=== PATIENT | male | born 1990 | race African-American/Black ===

== ENCOUNTER 2016-07-08 15:17 | Emergency (ER) | payer SELFPAY ==
[2016-07-08 15:54] LABS: Urine Bilirubin Negative (Negative); Urine Glucose Negative (Negative); Urine Nitrite Negative (Negative)
[2016-07-08 16:29] LABS: Benzodiazepine Urine Screen None Detected (None Detect)
[2016-07-08] MEDS ORDERED: Haloperidol INJ IV/IM* 5 MG/ML AMP ONE (17:54)
[2016-07-08] MEDS ORDERED: LORazepam INJ* 2 MG/ML 1 ML VIAL ONE (17:54)
[2016-07-08] MEDS ORDERED: diPHENhydraMINE IV* 50 MG/ML 1 ml VIAL (BENADRYL) ONE (17:55)
[2016-07-08] MEDS ORDERED: diPHENhydraMINE IV* 50 MG/ML 1 ml VIAL (BENADRYL) IM ONE (18:02)
[2016-07-08] MEDS ORDERED: LORazepam INJ* 2 MG/ML 1 ML VIAL IM ONE (18:03)
[2016-07-08] MEDS ORDERED: Haloperidol INJ IV/IM* 5 MG/ML AMP IM ONE (18:04)
[2016-07-08 19:43] LABS: Hematocrit 42 % (42-52); Hemoglobin 13.3 g/dl (14.0-18.0); Mean Corpuscular HGB Conc 32 g/dl (31-36); Mean Corpuscular Hemoglobin 26 pg (27-31); Mean Corpuscular Volume 82 fL (80-94); Mean Platelet Volume 8 um3 (7.4-10.4); Red Blood Count 5.08 10^6/ul (4.0-5.4); Red Cell Distribution Width 16 % (10.5-15); White Blood Count 3.5 10^3/ul (3.5-10.8)
[2016-07-08 19:57] LABS: ALT 39 U/L (7-52); AST 40 U/L (13-39); Albumin 3.6 g/dL (3.2-5.2); Alkaline Phosphatase 75 U/L (34-104); Anion Gap 5 mmol/L (2-11); BUN/Creatinine Ratio 17.7 (8-20); Blood Urea Nitrogen 14 mg/dL (6-24); CO2 Carbon Dioxide 28 mmol/L (22-32); Calcium 8.5 mg/dL (8.6-10.3); Chloride 102 mmol/L (101-111); EGFR African American 151.3 (>60); EGFR Non-African American 117.7 (>60); Globulin 3.2 g/dL (2-4); Glucose 84 mg/dL (70-100); Potassium 3.8 mmol/L (3.5-5.0); Sodium 135 mmol/L (133-145); Total Protein 6.8 g/dL (6.4-8.9)
[2016-07-08 20:18] LABS: Acetaminophen < 15 mcg/mL; Alcohol < 10 mg/dL (<10); Salicylate < 2.50 mg/dL (<30)
[2016-07-08 20:28] LABS: TSH (Thyroid Stimulating Horm) 1.55 mcIU/mL (0.34-5.60)
[2016-07-09 08:19] VITALS: BP 92/54
--- NOTE | 2016-07-09 12:46 | ED ---
I, Oh,Soohrigoun, scribed for Andry Barajas MD on 07/08/16 at 1547 . Psychiatric Complaint - HPI Summary HPI Summary: This 25 y/o male presents to ED as 945. Pt is currently complaining of "trouble sleeping", but does not report any depression, visual/auditory hallucination, or any SI/HI. Pt was staying over at [facility] when pt was sent over for MHE. Pt states that he does not know why he was referred to ED for MHE. Pt also denies any known depression. Pt is nonsmoker, nondrinker, and odes not abuse any recreational drug. - History Of Current Complaint Chief Complaint: EDMentalHealth Time Seen by Provider: 07/08/16 15:40 Hx Obtained From: Patient Onset/Duration: Sudden Onset Aggravating Factor(s): Nothing Alleviating Factor(s): Medication Associated Signs And Symptoms: Positive: Sleep Disturbance Related History: Negative For: Prior Psychiatric Issues Has Suicidal: Denies: Thoughts Has Homicidal: Denies: Thoughts - Allergies/Home Medications Allergies/Adverse Reactions: Allergies Allergy/AdvReac Type Severity Reaction Status Date / Time No Known Allergies Allergy Verified 07/08/16 18:02 PMH/Surg Hx/FS Hx/Imm Hx - Family History Known Family History: Negative: Cardiac Disease - Social History Alcohol Use: None Hx Substance Use: No Substance Use Type: Reports: None Hx Tobacco Use: No Smoking Status (MU): Never Smoked Tobacco Review of Systems Negative: Fever Positive: Other - sleep disturbance. Negative: Depressed All Other Systems Reviewed And Are Negative: Yes Physical Exam - Summary Physical Exam Summary: VITAL SIGNS: Reviewed. GENERAL: Patient is a well developed and nourished and coaperative male who is lying comfortable in the stretcher. Patient is not in any acute respiratory distress. HEAD AND FACE: No signs of trauma. No ecchymosis, hematomas or skull depressions. No sinus tenderness. EYES: PERRLA, EOMI x 2, No injected conjunctiva, no nystagmus. EARS: Hearing grossly intact. Ear canals and tympanic membranes are within normal limits. MOUTH: Oropharynx within normal limits. NECK: Supple, trachea is midline, no adenopathy, no JVD, no carotid bruit, no c- spine tenderness, neck with full ROM. CHEST: Symmetric, no tenderness at palpation LUNGS: Clear to auscultation bilaterally. No wheezing or crackles. CVS: Regular rate and rhythm, S1 and S2 present, no murmurs or gallops appreciated. ABDOMEN: Soft, non-tender. No signs of distention. No rebound no guarding, and no masses palpated. Bowel sounds are normal. EXTREMITIES: FROM in all major joints, no edema, no cyanosis or clubbing. NEURO: Alert and oriented x 3. No acute neurological deficits. Speech is normal and follows commands. SKIN: Dry and warm PSYCH: Depressed, quiet, denies any suicidal thoughts or plan. No homicidal thoughts or plan. No signs of psychosis or pressure speech. No tangential speech. Triage Information Reviewed: Yes Vital Signs On Initial Exam: Initial Vitals Temp Pulse Resp BP Pulse Ox 100.0 F 106 20 131/70 100 07/08/16 15:59 07/08/16 15:59 07/08/16 15:59 07/08/16 15:59 07/08/16 15:59 Vital Signs Reviewed: Yes Diagnostics - Vital Signs Vital Signs Temp Pulse Resp BP Pulse Ox 07/08/16 15:59 100.0 F 106 20 131/70 100 - Laboratory Lab Results: Lab Results 07/08/16 Range/Units 15:35 Urine Color Yellow Urine Appearance Clear Urine pH 7.0 (5-9) Ur Specific [place] 1.032 H (1.010-1.030) Urine Protein Negative (Negative) Urine Ketones Trace H (Negative) Urine Blood Negative (Negative) Urine Nitrate Negative (Negative) Urine Bilirubin Negative (Negative) Urine Urobilinogen Negative (Negative) Ur Leukocyte Esterase Negative (Negative) Urine Glucose Negative (Negative) Urine Ascorbic Acid * H (Negative) Result Diagrams: 07/08/16 19:30 07/08/16 19:30 Lab Statement: Any lab studies that have been ordered have been reviewed, and results considered in the medical decision making process. Course/Dx - Course Assessment/Plan: This 25 y/o male presents to ED as 945. Pt is currently complaining of "trouble sleeping", but does not report any depression, visual/ auditory hallucination, or any SI/HI. Pt was staying over at [facility] when pt was sent over for MHE. Blood work wnl. Patient is medically cleared and awaiting for psychiatric evaluation. Patient will signed out to Dr. Henderson to f/u MHE recommendations - Differential Dx/Clinical Impression Differential Diagnosis/HQI/PQRI: Positive: Acute Psychosis, Anxiety Provider Diagnosis: Agitation, Insomnia - Physician Notifications Patient Is Medically Stable For: Psych Evaluation - 2204pm Discharge - Discharge Plan Condition: Stable Disposition: OTHER Discharge Disposition Comment: Signed out to Dr. Henderson at shift change. Pending MHE. The documentation as recorded by the Sherif fernando Soohyun accurately reflects the service I personally performed and the decisions made by Karl walls Walter, MD.
--- NOTE | 2016-07-09 15:23 | PN ---
ED Flex Patient Progress Note Subjective: This is a 25 year-old M who is pending mental health evaluation secondary to insomnia. He was brought in on 945 and has not allowed a mental health evaluation to occur as he turns over and falls asleep with every attempted interaction. Pt offers no complaints at this time. He states that he has eaten lunch and has been sleeping well. Objective: Vitals: Most recent vital signs documented below. General NAD, Alert and oriented x3. Heart: rrr at 70 bpm Lungs: CTA or with rales, rhonchi, wheezing Abdomen: soft nontender, normoactive bowel sounds Laboratory: Current laboratory results documented below. Assessment: Insomnia Plan: Pending psychiatric to perform MHE in order to decide disposition Vital Signs Temp Pulse Resp BP Pulse Ox 100.7 F 96 14 92/54 98 07/09/16 08:18 07/09/16 08:18 07/09/16 08:18 07/09/16 08:18 07/09/16 08:18 Lab Results - Entire Visit 07/08/16 07/08/16 07/08/16 19:30 19:30 15:35 WBC 3.5 RBC 5.08 Hgb 13.3 L Hct 42 MCV 82 MCH 26 L MCHC 32 RDW 16 H Plt Count 232 MPV 8 Neut % (Auto) 63.0 Lymph % (Auto) 20.7 L Cherry % (Auto) 13.4 H Eos % (Auto) 2.5 Baso % (Auto) 0.4 Absolute Neuts (auto) 2.2 Absolute Lymphs (auto) 0.7 L Absolute Monos (auto) 0.5 Absolute Eos (auto) 0.1 Absolute Basos (auto) 0 Absolute Nucleated RBC 0.01 Nucleated RBC % 0.2 Sodium 135 Potassium 3.8 Chloride 102 Carbon Dioxide 28 Anion Gap 5 BUN 14 Creatinine 0.79 Est GFR ( Amer) 151.3 Est GFR (Non-Af Amer) 117.7 BUN/Creatinine Ratio 17.7 Glucose 84 Calcium 8.5 L Total Bilirubin 0.40 AST 40 H ALT 39 Alkaline Phosphatase 75 Total Protein 6.8 Albumin 3.6 Globulin 3.2 Albumin/Globulin Ratio 1.1 TSH 1.55 Urine Color Urine Appearance Urine pH Ur Specific [place] Urine Protein Urine Ketones Urine Blood Urine Nitrate Urine Bilirubin Urine Urobilinogen Ur Leukocyte Esterase Urine Glucose Urine Ascorbic Acid Salicylates < 2.50 Urine Opiates Screen None detected Acetaminophen < 15 Ur Barbiturates Screen None detected Ur Phencyclidine Scrn None detected Ur Amphetamines Screen None detected U Benzodiazepines Scrn None detected Urine Cocaine Screen None detected U Cannabinoids Screen None detected Serum Alcohol < 10 07/08/16 15:35 WBC RBC Hgb Hct MCV MCH MCHC RDW Plt Count MPV Neut % (Auto) Lymph % (Auto) Cherry % (Auto) Eos % (Auto) Baso % (Auto) Absolute Neuts (auto) Absolute Lymphs (auto) Absolute Monos (auto) Absolute Eos (auto) Absolute Basos (auto) Absolute Nucleated RBC Nucleated RBC % Sodium Potassium Chloride Carbon Dioxide Anion Gap BUN Creatinine Est GFR ( Amer) Est GFR (Non-Af Amer) BUN/Creatinine Ratio Glucose Calcium Total Bilirubin AST ALT Alkaline Phosphatase Total Protein Albumin Globulin Albumin/Globulin Ratio TSH Urine Color Yellow Urine Appearance Clear Urine pH 7.0 Ur Specific [place] 1.032 H Urine Protein Negative Urine Ketones Trace H Urine Blood Negative Urine Nitrate Negative Urine Bilirubin Negative Urine Urobilinogen Negative Ur Leukocyte Esterase Negative Urine Glucose Negative Urine Ascorbic Acid * H Salicylates Urine Opiates Screen Acetaminophen Ur Barbiturates Screen Ur Phencyclidine Scrn Ur Amphetamines Screen U Benzodiazepines Scrn Urine Cocaine Screen U Cannabinoids Screen Serum Alcohol <Nova Velez - Last Filed: 07/09/16 15:27> Subjective: This is a 25 year-old M who is pending admission to [facility] / transfer to another psychiatric facility / discharge to home / or being observed secondary to . Pt offers no complaints at this time or is c/o . Objective: Vitals: Most recent vital signs documented below. General NAD, Alert and oriented x3. Heart: rrr at bpm Lungs: CTA or with rales, rhonchi, wheezing Laboratory: Current laboratory results documented below. Assessment: Plan: Pending psychiatric or medical consultation to observe / transfer / admit / discharge will follow up daily . Vital Signs Temp Pulse Resp BP Pulse Ox 100.7 F 96 14 92/54 98 07/09/16 08:18 07/09/16 08:18 07/09/16 08:18 07/09/16 08:18 07/09/16 08:18 Lab Results - Entire Visit 07/08/16 07/08/16 07/08/16 19:30 19:30 15:35 WBC 3.5 RBC 5.08 Hgb 13.3 L Hct 42 MCV 82 MCH 26 L MCHC 32 RDW 16 H Plt Count 232 MPV 8 Neut % (Auto) 63.0 Lymph % (Auto) 20.7 L [place] % (Auto) 13.4 H Eos % (Auto) 2.5 Baso % (Auto) 0.4 Absolute Neuts (auto) 2.2 Absolute Lymphs (auto) 0.7 L Absolute Monos (auto) 0.5 Absolute Eos (auto) 0.1 Absolute Basos (auto) 0 Absolute Nucleated RBC 0.01 Nucleated RBC % 0.2 Sodium 135 Potassium 3.8 Chloride 102 Carbon Dioxide 28 Anion Gap 5 BUN 14 Creatinine 0.79 Est GFR ( Amer) 151.3 Est GFR (Non-Af Amer) 117.7 BUN/Creatinine Ratio 17.7 Glucose 84 Calcium 8.5 L Total Bilirubin 0.40 AST 40 H ALT 39 Alkaline Phosphatase 75 Total Protein 6.8 Albumin 3.6 Globulin 3.2 Albumin/Globulin Ratio 1.1 TSH 1.55 Urine Color Urine Appearance Urine pH Ur Specific [place] Urine Protein Urine Ketones Urine Blood Urine Nitrate Urine Bilirubin Urine Urobilinogen Ur Leukocyte Esterase Urine Glucose Urine Ascorbic Acid Salicylates < 2.50 Urine Opiates Screen None detected Acetaminophen < 15 Ur Barbiturates Screen None detected Ur Phencyclidine Scrn None detected Ur Amphetamines Screen None detected U Benzodiazepines Scrn None detected Urine Cocaine Screen None detected U Cannabinoids Screen None detected Serum Alcohol < 10 07/08/16 15:35 WBC RBC Hgb Hct MCV MCH MCHC RDW Plt Count MPV Neut % (Auto) Lymph % (Auto) [place] % (Auto) Eos % (Auto) Baso % (Auto) Absolute Neuts (auto) Absolute Lymphs (auto) Absolute Monos (auto) Absolute Eos (auto) Absolute Basos (auto) Absolute Nucleated RBC Nucleated RBC % Sodium Potassium Chloride Carbon Dioxide Anion Gap BUN Creatinine Est GFR ( Amer) Est GFR (Non-Af Amer) BUN/Creatinine Ratio Glucose Calcium Total Bilirubin AST ALT Alkaline Phosphatase Total Protein Albumin Globulin Albumin/Globulin Ratio TSH Urine Color Yellow Urine Appearance Clear Urine pH 7.0 Ur Specific [place] 1.032 H Urine Protein Negative Urine Ketones Trace H Urine Blood Negative Urine Nitrate Negative Urine Bilirubin Negative Urine Urobilinogen Negative Ur Leukocyte Esterase Negative Urine Glucose Negative Urine Ascorbic Acid * H Salicylates Urine Opiates Screen Acetaminophen Ur Barbiturates Screen Ur Phencyclidine Scrn Ur Amphetamines Screen U Benzodiazepines Scrn Urine Cocaine Screen U Cannabinoids Screen Serum Alcohol <Andry Barajas - Last Filed: 07/09/16 16:19>
--- NOTE | 2016-08-03 20:05 | ED ---
Progress - Progress Note Progress Note: pt evaluated by crisis d/c home stable - Consult/PCP Time Called: 12:00 Course/Dx - Diagnoses Provider Diagnoses: Agitation, Insomnia
== END 2016-07-10 07:30 ==
LOC: ED 15:17
DX: G47.00 Insomnia, unspecified (principal); G47.9 Sleep disorder, unspecified; R45.1 Restlessness and agitation
CPT/HCPCS: 36415; 80053; 80307; 80320; 80329; 81003; 84443; 85025; 96374; 96375; 99285; G0480; J1200; J1630; J2060

== ENCOUNTER 2016-07-21 12:07 | Inpatient (IN) | payer SELFPAY ==
[2016-07-21] MEDS ORDERED: NS 0.9% 1000 ML* 1,000 ML IV ONE ×2 (14:30→17:34)
[2016-07-21] MEDS ORDERED: Morphine INJ* 4 MG/ML 1 ML CARPUJECT IV ONE (14:30)
[2016-07-21] MEDS ORDERED: Ondansetron INJ* 2 MG/ML VIAL IV ONE (14:30)
--- NOTE | 2016-07-21 14:32 | ED ---
Parris Eason Janilya, scribed for Layne Skinner MD on 07/21/16 at 1430 . Progress - Progress Note Progress Note: A 25 y/o [facility] w/ abd pain for about couple days. Severity rated 10/10. Pain is located in LLQ. And there is also pain to palpation. Today, the pain has gotten worse. Pain radiates to the groin area. Pt reports hematuria of brownish-red color. Pt has not experienced these conditions before. Pt is tachycardic. PMHx insomnia. Plan: CT pelvis/abd urinalysis labs IV fluids Course/Dx - Diagnoses Provider Diagnoses: Hematuria The documentation as recorded by the derekibeParris Janilya accurately reflects the service I personally performed and the decisions made by me, Layne Skinner MD.
[2016-07-21 15:07] LABS: Hematocrit 44 % (42-52); Hemoglobin 14.2 g/dl (14.0-18.0); Mean Corpuscular HGB Conc 32 g/dl (31-36); Mean Corpuscular Hemoglobin 26 pg (27-31); Mean Corpuscular Volume 82 fL (80-94); Mean Platelet Volume 8 um3 (7.4-10.4); Red Cell Distribution Width 17 % (10.5-15)
[2016-07-21 15:34] LABS: Albumin 4.1 g/dL (3.2-5.2); C Reactive Protein 5.7 mg/L (< 5.00); Calcium 9.4 mg/dL (8.6-10.3); EGFR African American 137.2 (>60); EGFR Non-African American 106.7 (>60); Globulin 3.3 g/dL (2-4); Potassium 3.9 mmol/L (3.5-5.0); Total Bilirubin 0.4 mg/dL (0.2-1.0); Total Protein 7.4 g/dL (6.4-8.9)
--- NOTE | 2016-07-21 15:41 | RAD ---
Indication: Left flank pain hematuria. CT of the abdomen and pelvis was performed without oral or IV contrast administration. Coronal and sagittal reconstructed images were obtained. Lung bases demonstrate no pleural fluid, nodules or masses. Heart is of normal size without evidence of pericardial Liver is normal in size. No focal lesions or intrahepatic ductal dilatation is noted. The spleen is normal in size. The pancreas demonstrates no mass effect or ductal dilatation. No adrenal lesions are noted. The kidneys demonstrate no hydronephrosis. No retroperitoneal lymphadenopathy is noted. No dilated bowel are noted. CT of the pelvis demonstrates no retroperitoneal or pelvic lymphadenopathy. Urinary bladder is partially collapsed. No evidence of obstructive uropathy is noted. IMPRESSION: No evidence of obstructive uropathy is noted.
[2016-07-21] MEDS ORDERED: HYDROmorphone INJ* 1 MG/ML CARPUJECT SYRINGE IV ONE (16:02)
--- NOTE | 2016-07-21 20:34 | ED ---
Parris Eason Janilya, scribed for Layne Skinner MD on 07/21/16 at 1828 . Abdominal Pain/Male - HPI Summary HPI Summary: A 25 y/o male [facility] [place] w/ a gradual onset of constant LLQ abd pain for couple weeks, but today the pain has gotten worse. Severity rated 10/10. There is pain to palpation and it radiates down to groin area. Pt reports hematuria of brownish-red color that occurred today. In addition, pt has "almost vomited" a couple hours ago. Pt denies other urinary problems. Pt has not experienced these conditions before. PMHx undescended testes, for which, pt had surgery. - History of Current Complaint Chief Complaint: EDAbdPain Stated Complaint: ABD PAIN Time Seen by Provider: 07/21/16 15:24 Hx Obtained From: Patient Onset/Duration: Gradual Onset, Lasting Weeks, Still Present Timing: Constant, Lasting Days Severity Initially: Moderate Severity Currently: Moderate Pain Intensity: 5 Pain Scale Used: 0-10 Numeric Location: Discrete At: LLQ Radiates: Yes Radiates to: Other - groin area Character: Dull Aggravating Factor(s): Nothing Alleviating Factor(s): Nothing Associated Signs And Symptoms: Positive: Urinary Symptoms, Vomiting - "almost vomited" - Risk Factors Testicular Torsion: Undescended Testes Cardiac Risk Factors: Hypertension - Allergies/Home Medications Allergies/Adverse Reactions: Allergies Allergy/AdvReac Type Severity Reaction Status Date / Time No Known Allergies Allergy Verified 07/08/16 18:02 PMH/Surg Hx/FS Hx/Imm Hx History: Reports: Other Problems/Disorders - undescended testes Psychiatric History: Denies: Hx Eating Disorder, Hx of Violent Episodes Against Others Infectious Disease History: No Infectious Disease History: Denies: Traveled Outside the [place] in Last 30 Days - Family History Known Family History: Negative: Cardiac Disease - Social History Occupation: Employed Full-time Lives: With Family Alcohol Use: None Hx Substance Use: No Substance Use Type: Reports: None Hx Tobacco Use: No Smoking Status (MU): Never Smoked Tobacco Review of Systems Positive: Abdominal Pain - LLQ, Vomiting - "almost vomited" Genitourinary: Negative - pt denies other urinary problems, see hpi, Other - abd pain radiates to groin area Positive: hematuria - brownish-red All Other Systems Reviewed And Are Negative: Yes Physical Exam Triage Information Reviewed: Yes Vital Signs On Initial Exam: Initial Vitals Temp Pulse Resp BP Pulse Ox 98.9 F 105 18 109/74 97 07/21/16 12:10 07/21/16 12:10 07/21/16 12:10 07/21/16 12:10 07/21/16 12:10 Vital Signs Reviewed: Yes Appearance: Positive: No Pain Distress. Negative: Well-Appearing - unkempt Skin: Positive: Warm, Skin Color Reflects Adequate Perfusion, Dry Eyes: Positive: EOMI, ROSALIA ENT: Positive: Pharynx normal, TMs normal Neck: Positive: Supple, Nontender Respiratory/Lung Sounds: Positive: Clear to Auscultation, Breath Sounds Present. Negative: Rales, Rhonchi - no wheezes Cardiovascular: Positive: RRR. Negative: Murmur, Rub - no gallops Abdomen Description: Positive: Other: - subpubic discomfort, left flank pain Bowel Sounds: Positive: Present Musculoskeletal: Positive: Strength/ROM Intact. Negative: Edema Left, Edema Right Neurological: Positive: Sensory/Motor Intact, Alert, Oriented to Person Place, Time, CN Intact II-III Psychiatric: Positive: Affect/Mood Appropriate Diagnostics - Vital Signs Vital Signs Temp Pulse Resp BP Pulse Ox 07/21/16 15:28 15 07/21/16 12:10 98.9 F 105 18 109/74 97 - Laboratory Lab Results: Lab Results 07/21/16 07/21/16 07/21/16 Range/Units 14:45 14:45 14:45 WBC 6.0 (3.5-10.8) 10^3/ul RBC 5.40 (4.0-5.4) 10^6/ul Hgb 14.2 (14.0-18.0) g/dl Hct 44 (42-52) % MCV 82 (80-94) fL MCH 26 L (27-31) pg MCHC 32 (31-36) g/dl RDW 17 H (10.5-15) % Plt Count 325 (150-450) 10^3/ul MPV 8 (7.4-10.4) um3 Neut % (Auto) 65.0 (38-83) % Lymph % (Auto) 21.6 L (25-47) % [place] % (Auto) 9.4 H (1-9) % Eos % (Auto) 3.0 (0-6) % Baso % (Auto) 1.0 (0-2) % Absolute Neuts (auto) 3.9 (1.5-7.7) 10^3/ul Absolute Lymphs (auto) 1.3 (1.0-4.8) 10^3/ul Absolute Monos (auto) 0.6 (0-0.8) 10^3/ul Absolute Eos (auto) 0.2 (0-0.6) 10^3/ul Absolute Basos (auto) 0.1 (0-0.2) 10^3/ul Absolute Nucleated RBC 0 10^3/ul Nucleated RBC % 0.1 Sodium 139 (133-145) mmol/L Potassium 3.9 (3.5-5.0) mmol/L Chloride 103 (101-111) mmol/L Carbon Dioxide 30 (22-32) mmol/L Anion Gap 6 (2-11) mmol/L BUN 12 (6-24) mg/dL Creatinine 0.86 (0.67-1.17) mg/dL Est GFR ( Amer) 137.2 (>60) Est GFR (Non-Af Amer) 106.7 (>60) BUN/Creatinine Ratio 14.0 (8-20) Glucose 75 (70-100) mg/dL Lactic Acid 1.0 (0.5-2.0) mmol/L Calcium 9.4 (8.6-10.3) mg/dL Total Bilirubin 0.40 (0.2-1.0) mg/dL AST 18 (13-39) U/L ALT 24 (7-52) U/L Alkaline Phosphatase 79 (34-104) U/L C-Reactive Protein 5.70 H (< 5.00) mg/L Total Protein 7.4 (6.4-8.9) g/dL Albumin 4.1 (3.2-5.2) g/dL Globulin 3.3 (2-4) g/dL Albumin/Globulin Ratio 1.2 (1-3) Lipase 44 (11.0-82.0) U/L Result Diagrams: 07/21/16 14:45 07/21/16 14:45 Lab Statement: Any lab studies that have been ordered have been reviewed, and results considered in the medical decision making process. - CT abd/pel CT Interpretation: No Acute Changes - IMPRESSION: No evidence of obstructive uropathy is noted. CT Interpretation Completed By: Radiologist - IMPRESSION: No evidence of obstructive uropathy is noted. Abdominal Pain Fem Course/Dx - Course Course Of Treatment: 183 pt says he can't urinate, has had 2 liters of fluids, agreed to a genital exam, but grimaced and moved this examiners hand away for exam. His affect and answers to exams has me wondering about what is going on. I have ordered an u/s of his testicle and bladder. At this point pt will be signed out to Dr. Bradley for followup of his ultrasounds. - Diagnoses Provider Diagnoses: Hematuria Discharge - Discharge Plan Condition: Stable Disposition: OTHER Discharge Disposition Comment: to be determined by Dr. Bradley The documentation as recorded by the Parris fernando Janilya accurately reflects the service I personally performed and the decisions made by me, Layne Skinner MD.
[2016-07-21] MEDS ORDERED: Ketorolac INJ* 30 MG/ML 1 ML VIAL IV PUSH ONE (20:48)
--- NOTE | 2016-07-21 21:42 | RAD ---
INDICATION: Inability to void COMPARISON: CT abdomen and pelvis same date TECHNIQUE: Longitudinal and transverse scans of the bladder were obtained. FINDINGS: Bladder: The prevoid volume is 154 mL. The patient stated that he could not void. There is no bladder wall thickening or evidence of intrinsic or extrinsic mass. There are ureteral jets. The prostate is normal in size measuring 3.3 x 2.3 x 3.7 cm. IMPRESSION: NORMAL BLADDER. THE PATIENT WAS NOT ABLE TO VOID SPONTANEOUSLY.
--- NOTE | 2016-07-21 21:46 | RAD ---
INDICATION: Left testicular pain COMPARISON: CT abdomen and pelvis same date TECHNIQUE: Duplex interrogation of the scrotum was performed. FINDINGS: Testicles: The testicles are Normal in size and echogenicity. There is no evidence of testicular mass. There is symmetric flow on Doppler interrogation. There is no evidence of torsion.. The right testis measures 2.8 x 1.9 x 2.3 cm and the left 3.4 x 1.6 and 2.0 cm. There is symmetric flow on Doppler interrogation. Epididymides: There is no evidence of an epididymal mass. The epididymides are normal in size. There is symmetric flow on Doppler interrogation. The right epididymal head measures 0.7 x 0.9 cm and the left 0.8 x 0.9 cm. Hydroceles: None. Varicoceles: Small varicoceles.. Other: Tiny right-sided paratesticular cysts. IMPRESSION: NO ACUTE ULTRASOUND FINDINGS. NO EVIDENCE OF TESTICULAR MASS OR TORSION.
[2016-07-22] MEDS ORDERED: risperiDONE TAB* 2 MG ONE (01:42)
--- NOTE | 2016-07-22 05:12 | ED ---
Jesus Manuel Eason Adam, scribed for Colten Bradley on 07/22/16 at 0458 . Progress - Progress Note Progress Note: Waiting for mental health evaluation. Course/Dx - Diagnoses Provider Diagnoses: Hematuria The documentation as recorded by the derekibJesus Manuel black Adam accurately reflects the service I personally performed and the decisions made by Kirk walls Emmanuel.
--- NOTE | 2016-07-22 13:19 | PN ---
ED Flex Patient Progress Note Subjective: 25 y.o. AA male referred from the [facility] due to bizarre behavior and inability to care for himself in the community. Today he is laying on his side in the flex room, eyes open but will not make eye contact nor respond to questions. Flex staff indicates that he is not eating meals nor grooming and is bizarre when he does speak. Objective: Awake but unresponsive AA male in scrubs Assessment: Unspecified Psychotic DO Plan: Pending psychiatric admission. There are currently no male beds on the Adult [facility] so we will initiate DCS transfer protocol. Vital Signs Temp Pulse Resp BP Pulse Ox 98.9 F 101 13 116/73 97 07/21/16 12:10 07/21/16 17:14 07/21/16 23:30 07/21/16 23:30 07/21/16 17:14 Lab Results - Entire Visit 07/21/16 07/21/16 07/21/16 14:45 14:45 14:45 WBC 6.0 RBC 5.40 Hgb 14.2 Hct 44 MCV 82 MCH 26 L MCHC 32 RDW 17 H Plt Count 325 MPV 8 Neut % (Auto) 65.0 Lymph % (Auto) 21.6 L [place] % (Auto) 9.4 H Eos % (Auto) 3.0 Baso % (Auto) 1.0 Absolute Neuts (auto) 3.9 Absolute Lymphs (auto) 1.3 Absolute Monos (auto) 0.6 Absolute Eos (auto) 0.2 Absolute Basos (auto) 0.1 Absolute Nucleated RBC 0 Nucleated RBC % 0.1 Sodium 139 Potassium 3.9 Chloride 103 Carbon Dioxide 30 Anion Gap 6 BUN 12 Creatinine 0.86 Est GFR ( Amer) 137.2 Est GFR (Non-Af Amer) 106.7 BUN/Creatinine Ratio 14.0 Glucose 75 Lactic Acid 1.0 Calcium 9.4 Total Bilirubin 0.40 AST 18 ALT 24 Alkaline Phosphatase 79 C-Reactive Protein 5.70 H Total Protein 7.4 Albumin 4.1 Globulin 3.3 Albumin/Globulin Ratio 1.2 Lipase 44
[2016-07-22] MEDS ORDERED: Al Hydrox/Mg Hydrox/Simet LIQ* 30 ML UDC PO PRN (16:26)
[2016-07-22] MEDS ORDERED: Acetaminophen TAB* 325 MG PO PRN (16:26)
[2016-07-22] MEDS ORDERED: chlorproMAZINE TAB* 100 MG PO PRN (16:27)
[2016-07-22] MEDS: risperiDONE TAB* 2 MG PO SCH (22:00)
[2016-07-23] MEDS: Vitamin THERAPEUTIC TAB PO SCH (13:06)
--- NOTE | 2016-07-23 17:13 | HP ---
DATE OF ADMISSION: 07/22/2016. JUSTIFICATION FOR ADMISSION: The patient is in need of 24 hour supervision and care secondary to extremely disorganized behavior and failure to meet his own needs and keep himself safe in the community. CHIEF COMPLAINT: "When you're a ayan, you get to be an attorney lawyer and a try on baster, and when you're a try on baster, you get to write your own try on baster's order." HISTORY OF PRESENT ILLNESS: The patient is a 25-year-old, single, homosexual, -St Helenian male with an unspecified history of psychosis, who arrived at our facility after calling the police and telling them that he needed to come to be evaluated for difficulty urinating. Upon arrival, he was extremely disorganized, was not eating, nor toileting appropriately. His only complaint at that time was pain from an undescended testicle and he was treated with pain relievers; however, he became unresponsive and was transferred to the ED flex unit. There he continued to be grossly disorganized, at one point urinating on the floor and he appeared unable to provide the treatment staff with much history. We were able to get in touch with a telecommunications sales representative of the [facility] who indicated that Jairo has been receiving services from that facility for approximately the past two months. They indicated that he was increasingly disorganized, often violating rules such as leaving at off hour times and locking himself in the bathroom while running the water. We were also to get collateral information from the [place] [employer] who indicates that they have had numerous interactions with the patient due to his disorganized behavior. At times he will trespass onto private property and abruptly lie down on the ground where they will find him sleeping. They indicate that he has never been violent and this is supported by the [facility]. Currently, as I enter his room, he is able to carry on a conversation with me, although it is bizarre. 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 He is nonsecretor non-sequitur at many times and I have a difficult time gathering a full and accurate history. It is notable that his mother has been identified, along with her phone number; however, I have left a voice message that has not been returned yet. On examination, the patient is disorganized. He appears to be internally distracted with a disjointed thought process and loosening of associations. He is interactive, but again limited in terms of the history. PAST PSYCHIATRIC HISTORY: We have confirmed that he was a patient of the Inpatient Psychiatric Unit at the [facility] in [place], [place] in March 2016. At some point, he appears to have disappeared and ended up initially in the [place], then migrating to [place] for at least the past [id number] to two months. While here, he has not received any type of psychiatric treatment and he is not currently on psychiatric medications. Although he denies any formal mental health history, at various times in our conversation he does admit to having been on Risperdal, Abilify, and Thorazine in the past; however, he is stating that his only psychiatric diagnosis was sleep insomnia disorder. He does let it slip later in the conversation that at least once he has been identified as bipolar. The patient steadfastly denies any history of violence towards others or any history of suicidal behavior. He denies any traumatic brain injury or any history of abuse from others. PAST MEDICAL HISTORY: Significant for what he is describing as an undescended testicle. He is also telling me that he has gender hormone deficiency and that technically he should be labeled a female because of this. MEDICATIONS: Currently he is not on any medications, although he is requesting Hydroxyzine for sleep. ALLERGIES: He has no known drug allergies. FAMILY HISTORY: The patient indicates that he was adopted. When asked about his family of origin, he denies any mental illness, telling me only that his mother was a famous director transition and that his father invented the accordion. SUBSTANCE ABUSE HISTORY: He denies abuse of alcohol, illicit drugs, or tobacco. SOCIAL HISTORY: The patient apparently was adopted by his single mother, who is a nurse, and was raised alone. He is stating that he does not have any siblings. 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 The patient identifies as homosexual, although he is not currently sexually active and he denies any history of sexually transmitted diseases. He denies any history. When asked about spirituality, he denies any particular confucianist, although he indicates that he has been receiving some type of support from a congregation in [place], [place]. LEGAL HISTORY: The patient is indicating that he had a lawsuit against an unknown entity that was successful because he himself was the try on baster and he decided in his own favor, and he is expecting a lawsuit settlement from this arrangement. When asked for further details, he states "I already emailed them to you." Nothing else of his history could be gathered at this time. REVIEW OF SYSTEMS: The patient is complaining of pain in his left flank, as well as testicular pain. My understanding is that this has been evaluated in the emergency room and any organic causes have been ruled out. Other than this , he is denying headache or double vision. He is denying sore throat, cough, chest pain, difficulty breathing. Denying abdominal pain, nausea, vomiting or diarrhea. He did complain of difficulty urinating, which he is stating is resolved. He denies difficulty ambulating, enlarged lymph nodes or rashes at this time. PHYSICAL EXAMINATION VITAL SIGNS: Blood pressure 135/80, pulse 86, respiratory rate 16, oxygen saturations 99 percent on room air, temperature 99.0 degrees Fahrenheit. HEENT: Head is normocephalic, atraumatic. NECK: Supple. CHEST: Clear to auscultation bilaterally. CARDIAC: Exam reveals normal heart sounds. ABDOMEN: Soft and nontender. SKIN: Warm and dry. EXTREMITIES: Reveal full range of motion with no sign of edema. NEUROLOGIC: He is grossly intact with no focal deficits. LABORATORY DATA: A CBC is within normal limits, as is a complete metabolic panel. MENTAL STATUS EXAM: The patient is a young, -St Helenian male, wearing eye glasses and blue patient scrubs. He is lying in bed, but makes reasonable eye contact. He is somewhat hyperverbal at this time with pressured speech. Mood would appear to be hypomanic to manic with an expansive affect. Thought process is disjointed with nonsequential thinking and loosening of associations. Thought content is paranoid and grandiose and delusional. He is denying auditory or visual hallucinations. He denies suicidal or homicidal ideations. Insight and judgment are markedly impaired given his lack of follow through with outpatient psychiatric treatment. Cognitively, he is awake and alert with what appears to be an average intellect. DIAGNOSES: AXIS I: Unspecified psychotic disorder. AXIS II: Deferred. AXIS III: None. AXIS IV: Severe, housing and primary support stressors. AXIS V: At this time is 25. IMPRESSION: The patient is a 25-year-old, single, homosexual, -[place] Helenian male with an unspecified history of psychotic illness, who was most recently admitted at the [facility] Unit in March 2016, who has arrived as a homeless person here in [place] and now presents as psychotic and unable to care for himself. The patient is refusing antipsychotic treatment at this time, telling me that his problems really involve insomnia and the only medication that he is willing to take is Hydroxyzine. I have left a message with his mother inviting her to contact me back with further collateral information. PLAN: The patient is admitted to the Adult Behavioral Health Unit where he is placed on q.30 minute checks for his own safety. He does not seem to be an acute risk to himself or others, other than the fact that it appears that in the community he was not eating or drinking or toileting appropriately, so we will certainly monitor these issues as we move forward. I have continued the medication that had been started in the emergency room, which is Risperidone 1 mg p.o. at bedtime. I think it would be reasonable at this point to try to get his documents from the [facility] so that we can find out more about past treatments and whether or not they have benefited the patient. While he is here , he is certainly encouraged to avail himself of all milieu activities, including group and individual psychotherapy. His family will be invited to participate in treatment, including a family meeting once we can establish contact with them. [id number]/[facility] #: [id number] STEPHANIE
[2016-07-23] MEDS: risperiDONE TAB* 2 MG PO SCH (21:07)
--- NOTE | 2016-07-24 09:03 | PN ---
Subjective - Subjective Service Type: [id number] Hosp care 15 min low complexity Subjective: The patient is found sleeping in his room. He continued to decline medication last night and disagrees that he has mental illness. He is stand-offish and argumentative. "You violated the treatment plan that I made. You didn't call Dr. 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 The patient' s mother, Harmony Ponce, was phoned yesterday by me, however, I have not received a return call as yet. Objective - Appearance Appearance: Well Developed/Nourished Dysmorphic Features: No Hygiene: Normal Grooming: Fairly Well Kept - Behavior Psychomotor Activities: Normal Exhibits Abnormal Movement: No - Attitude and Relatedness Attitude and Relatedness: Psychotically Related Eye Contact: Fair - Speech Quality: Pressured Latencies: Normal Quantity: Copious - Mood Patient's Decription of Mood: "Okay" - Affect Observed Affect: Fair Affect Consistent with: Dysphoria - Thought Process Patient's Thought Process: Loose Associations Thought Content: Yes Paranoid Ideation, No Passive Wish, No Suicidal Planning, No Homicidal Ideation - Sensorium Experiencing Hallucinations: Yes Type of Hallucinations: Visual: No, Auditory: Yes, Command: No - Level of Consciousness Level of Consciousness: Alert Orientation: Yes Intact, Yes Orientated to Time, Yes Orientated to Place, Yes Orientated to Person - Impulse Control Impulse Control: Poor - Insight and Judgement Insight and Judgement: Impaired - Group Participation Particating in Group Activities: No - Medication Management Medication Management Adherence: No Assessment - Assessment Merits Inpatient Hospitalization: For Immediate Safety, For Stabilization Inpatient DSM-IV Dx: Unspecified psychotic DO Clinical Impression: 25 y.o. single, homosexual, homeless AA male with a history of psychotic illness and past psychiatric hospitalization arrived at the hospital voluntarily , complaining of groin pain and difficulty urinating, but presents with disorganized thought process and inability to care for himself in the community. Plan - Plan Treatment Plan: Name: DONOVAN PONCE Birthdate: 1990 [id number] The patient is refusing treatment and remains psychotic, uncooperative and disorganized. We await collateral contact with his family. Will encourage adherence with risperidone. Patient's medical complaints were adequately addressed in the ER. Continued Medication Management: Start Medication Medications: Current Medications Acetaminophen (Tylenol Tab*) 650 mg PO Q4H PRN PRN Reason: for pain; or Temp >101 F Al Hydrox/Mg Hydrox/Simethicone (Maalox Plus*) 30 ml PO Q4H PRN PRN Reason: INDIGESTION Chlorpromazine HCl (Thorazine Tab*) 100 mg PO Q6H PRN PRN Reason: AGITATION/ANXIETY/INSOMNIA Multivitamins (Theragran Tab*) 1 tab PO DAILY [facility] Last Admin: 07/23/16 13:06 Dose: Not Given Risperidone (Risperdal*) 2 mg PO BEDTIME [facility] Last Admin: 07/23/16 21:07 Dose: Not Given - Discharge Plan Discharge Plan: Inpatient Hospitalization
[2016-07-24] MEDS: Vitamin THERAPEUTIC TAB PO SCH (09:44)
[2016-07-24] MEDS: risperiDONE TAB* 2 MG PO SCH (21:15)
[2016-07-25] MEDS: Vitamin THERAPEUTIC TAB PO SCH (10:37)
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
[2016-07-25] MEDS: risperiDONE TAB* 2 MG PO SCH (22:32)
[2016-07-26] MEDS: Vitamin THERAPEUTIC TAB PO SCH (08:47)
[2016-07-26] MEDS: risperiDONE TAB* 2 MG PO SCH (22:23)
--- NOTE | 2016-07-27 11:34 | PN ---
Subjective - Subjective Service Type: 86530 Hosp care 15 min low complexity Subjective: Jairo repeatedly informed me "I am getting duralax so I will be able to poop." He denies having any mental illness and said he is admitted due to "sleep insomnia," and he would not consider medication recommended for other conditions , which he sad "have all been ruled out." Objective - Appearance Appearance: Well Developed/Nourished Hygiene: Normal Grooming: Disheveled - Behavior Psychomotor Activities: Normal - Attitude and Relatedness Attitude and Relatedness: Psychotically Related Eye Contact: Good - Speech Quality: Unpressured Latencies: Normal Quantity: Appropriate - Mood Patient's Decription of Mood: "Fine" - Affect Observed Affect: Tense Affect Consistent with: Euthymia - Thought Process Patient's Thought Process: Over Inclusive Thought Content: No Passive Wish, No Suicidal Planning, No Homicidal Ideation, No Paranoid Ideation - Sensorium Experiencing Hallucinations: No, Sensorium is Clear - Level of Consciousness Level of Consciousness: Alert - Impulse Control Impulse Control: Intact - Insight and Judgement Insight and Judgement: Poor Assessment - Assessment Merits Inpatient Hospitalization: For Immediate Safety Inpatient DSM-IV Dx: Unspecified psychotic DO Clinical Impression: 25 y.o. homeless male with a history of Schizoaffective disorder diagnosis and prior psychiatric hospitalization. He was admitted because he was evaluated as impaired and unable to care for self, after initially presenting with a somatic complaint. He his safe on checks, seclusive. He is not floridly psychotic but functions at the psychotic levels in terms of negative symptoms and impairment in insight. He is unable to meet own needs outside this setting. He refuses indicated medicines and this may mean T.O.O. process is needed. Plan - Plan Treatment Plan: Name: JAIRO MORILLO Birthdate: 1990 [id number] Medications: Current Medications Acetaminophen (Tylenol Tab*) 650 mg PO Q4H PRN PRN Reason: for pain; or Temp >101 F Al Hydrox/Mg Hydrox/Simethicone (Maalox Plus*) 30 ml PO Q4H PRN PRN Reason: INDIGESTION Last Admin: 07/27/16 09:45 Dose: 30 ml Chlorpromazine HCl (Thorazine Tab*) 100 mg PO Q6H PRN PRN Reason: AGITATION/ANXIETY/INSOMNIA Multivitamins (Theragran Tab*) 1 tab PO DAILY [facility] Last Admin: 07/26/16 08:47 Dose: Not Given Risperidone (Risperdal*) 2 mg PO BEDTIME [facility] Last Admin: 07/26/16 22:23 Dose: Not Given
[2016-07-27] MEDS: Vitamin THERAPEUTIC TAB PO SCH (13:20)
[2016-07-27] MEDS: risperiDONE TAB* 2 MG PO SCH (20:50)
[2016-07-28] MEDS: Vitamin THERAPEUTIC TAB PO SCH (10:09)
--- NOTE | 2016-07-28 13:43 | PN ---
Subjective - Subjective Service Type: 13628 Hosp care 15 min low complexity Subjective: The patient is dismissive and argumentative today. He continues to be unable to provide us with any collateral contact that could substantiate a discharge plan or vouch for his safety. He is refusing meds and is not attending groups or otherwise participating in treatment. He continues to insist that he is going to return to his studies at [employer], despite his mother's claim that he has never attended classes or even been there before. Objective - Appearance Appearance: Thin Framed Dysmorphic Features: No Hygiene: Normal Grooming: Fairly Well Kept - Behavior Psychomotor Activities: Normal Exhibits Abnormal Movement: No - Attitude and Relatedness Attitude and Relatedness: Dismissive Eye Contact: Poor - Speech Quality: Pressured Latencies: Short Quantity: Copious - Mood Patient's Decription of Mood: "Fine" - Affect Observed Affect: Tense Affect Consistent with: Euthymia - Thought Process Patient's Thought Process: Loose Associations Thought Content: Yes Paranoid Ideation, No Passive Wish, No Suicidal Planning, No Homicidal Ideation - Sensorium Experiencing Hallucinations: Yes Type of Hallucinations: Visual: No, Auditory: Yes, Command: No - Level of Consciousness Level of Consciousness: Alert Orientation: Yes Intact, Yes Orientated to Time, Yes Orientated to Place, Yes Orientated to Person - Impulse Control Impulse Control: Poor - Insight and Judgement Insight and Judgement: Impaired - Group Participation Particating in Group Activities: No - Medication Management Medication Management Adherence: No Assessment - Assessment Merits Inpatient Hospitalization: For Immediate Safety, For Stabilization Inpatient DSM-IV Dx: Unspecified psychotic DO Clinical Impression: 25 y.o. single, homosexual, homeless AA male with a history of psychotic illness and past psychiatric hospitalization arrived at the hospital voluntarily , complaining of groin pain and difficulty urinating, but presents with disorganized thought process and inability to care for himself in the community. Plan - Plan Treatment Plan: Name: DONOVAN MORILLO Birthdate: 1990 [id number] The patient is refusing treatment and remains psychotic, uncooperative and disorganized. Will encourage adherence with risperidone. Will pursue T.O.O. as patient is disorganized and incapable of participating in safe discharge planning. Continued Medication Management: Start Medication Medications: Current Medications Acetaminophen (Tylenol Tab*) 650 mg PO Q4H PRN PRN Reason: for pain; or Temp >101 F Al Hydrox/Mg Hydrox/Simethicone (Maalox Plus*) 30 ml PO Q4H PRN PRN Reason: INDIGESTION Last Admin: 07/27/16 09:45 Dose: 30 ml Chlorpromazine HCl (Thorazine Tab*) 100 mg PO Q6H PRN PRN Reason: AGITATION/ANXIETY/INSOMNIA Multivitamins (Theragran Tab*) 1 tab PO DAILY [facility] Last Admin: 07/28/16 10:09 Dose: Not Given Risperidone (Risperdal*) 2 mg PO BEDTIME [facility] Last Admin: 07/27/16 20:50 Dose: Not Given - Discharge Plan Discharge Plan: Inpatient Hospitalization
[2016-07-28] MEDS: risperiDONE TAB* 2 MG PO SCH (20:46)
[2016-07-29] MEDS: Vitamin THERAPEUTIC TAB PO SCH (11:48)
--- NOTE | 2016-07-29 15:30 | PN ---
Subjective - Subjective Service Type: 30502 Hosp care 15 min low complexity Subjective: The patient continues to refuse psychiatric medications and tells me today that he arranged his discharge plan with a nurse on the evening shift named Danay. "Yeah, we worked out all the details, so you can get an email from her. I've made my recommendation to the team and I think my responsibility is really done here." He shows no insight into his situation at all and more concrete details about a possible discharge scenario are not forthcoming. Objective - Appearance Appearance: Thin Framed Dysmorphic Features: No Hygiene: Normal Grooming: Fairly Well Kept - Behavior Psychomotor Activities: Normal Exhibits Abnormal Movement: No - Attitude and Relatedness Attitude and Relatedness: Psychotically Related Eye Contact: Fair - Speech Quality: Pressured Latencies: Short Quantity: Copious - Mood Patient's Decription of Mood: "Fine" - Affect Observed Affect: Expansive Affect Consistent with: Dysphoria - Thought Process Patient's Thought Process: Disorganized Thought Content: Yes Paranoid Ideation, No Passive Wish - Sensorium Experiencing Hallucinations: Yes Type of Hallucinations: Visual: No, Auditory: Yes, Command: No - Level of Consciousness Level of Consciousness: Alert Orientation: Yes Intact, Yes Orientated to Time, Yes Orientated to Place, Yes Orientated to Person - Impulse Control Impulse Control: Poor - Insight and Judgement Insight and Judgement: Impaired - Group Participation Particating in Group Activities: No - Medication Management Medication Management Adherence: No Assessment - Assessment Merits Inpatient Hospitalization: For Immediate Safety, For Stabilization Inpatient DSM-IV Dx: Unspecified psychotic DO Clinical Impression: 25 y.o. single, homosexual, homeless AA male with a history of psychotic illness and past psychiatric hospitalization arrived at the hospital voluntarily , complaining of groin pain and difficulty urinating, but presents with disorganized thought process and inability to care for himself in the community. Plan - Plan Treatment Plan: Name: DONOVAN MORILLO Birthdate: 1990 [id number] The patient is refusing treatment and remains psychotic, uncooperative and disorganized. Will encourage adherence with risperidone. Will pursue T.O.O. as patient is disorganized and incapable of participating in safe discharge planning. Continued Medication Management: Start Medication Medications: Current Medications Acetaminophen (Tylenol Tab*) 650 mg PO Q4H PRN PRN Reason: for pain; or Temp >101 F Al Hydrox/Mg Hydrox/Simethicone (Maalox Plus*) 30 ml PO Q4H PRN PRN Reason: INDIGESTION Last Admin: 07/27/16 09:45 Dose: 30 ml Chlorpromazine HCl (Thorazine Tab*) 100 mg PO Q6H PRN PRN Reason: AGITATION/ANXIETY/INSOMNIA Multivitamins (Theragran Tab*) 1 tab PO DAILY [facility] Last Admin: 07/29/16 11:48 Dose: Not Given Risperidone (Risperdal*) 2 mg PO BEDTIME [facility] Last Admin: 07/28/16 20:46 Dose: Not Given - Discharge Plan Discharge Plan: Inpatient Hospitalization
[2016-07-29] MEDS: risperiDONE TAB* 2 MG PO SCH (21:37)
[2016-07-30] MEDS: Vitamin THERAPEUTIC TAB PO SCH (09:23)
--- NOTE | 2016-07-30 15:53 | PN ---
Subjective - Subjective Service Type: [id number] Hosp care 15 min low complexity Subjective: The patient continues to insist on being discharged back to the [facility]. "Yeah, you can just use the money from my manager financial and get me a bus ticket back." This is despite his mother's assertion that he is neither a student at [employer] [facility], nor has he ever, to her knowledge, been to the [facility]. Jairo is informed of the risk of influenza exposure on our unit due to an infected peer who was admitted and discharged recently. He accepts the offer of Tamiflu prophylaxis. Objective - Appearance Appearance: Thin Framed Dysmorphic Features: No Hygiene: Normal Grooming: Disheveled - Behavior Psychomotor Activities: Normal Exhibits Abnormal Movement: No - Attitude and Relatedness Attitude and Relatedness: Psychotically Related Eye Contact: Poor - Speech Quality: Pressured Latencies: Short Quantity: Copious - Mood Patient's Decription of Mood: "Great" - Affect Observed Affect: Fair Affect Consistent with: Euthymia - Thought Process Patient's Thought Process: Loose Associations Thought Content: Yes Paranoid Ideation, No Passive Wish, No Suicidal Planning, No Homicidal Ideation - Sensorium Experiencing Hallucinations: Yes Type of Hallucinations: Visual: No, Auditory: Yes, Command: No - Level of Consciousness Level of Consciousness: Alert Orientation: Yes Intact, Yes Orientated to Time, Yes Orientated to Place, Yes Orientated to Person - Impulse Control Impulse Control: Poor - Insight and Judgement Insight and Judgement: Impaired - Group Participation Particating in Group Activities: No - Medication Management Medication Management Adherence: No Assessment - Assessment Merits Inpatient Hospitalization: For Immediate Safety, For Stabilization Inpatient DSM-IV Dx: Unspecified psychotic DO Clinical Impression: 25 y.o. single, homosexual, homeless AA male with a history of psychotic illness and past psychiatric hospitalization arrived at the hospital voluntarily , complaining of groin pain and difficulty urinating, but presents with disorganized thought process and inability to care for himself in the community. Plan - Plan Treatment Plan: Name: JAIRO MORILLO Birthdate: 1990 [id number] The patient is refusing treatment and remains psychotic, uncooperative and disorganized. Will encourage adherence with risperidone. Will pursue T.O.O. as patient is disorganized and incapable of participating in safe discharge planning. Start Tamiflu 30mg PO qday. Continued Medication Management: Start Medication Medications: Current Medications Acetaminophen (Tylenol Tab*) 650 mg PO Q4H PRN PRN Reason: for pain; or Temp >101 F Al Hydrox/Mg Hydrox/Simethicone (Maalox Plus*) 30 ml PO Q4H PRN PRN Reason: INDIGESTION Last Admin: 07/27/16 09:45 Dose: 30 ml Chlorpromazine HCl (Thorazine Tab*) 100 mg PO Q6H PRN PRN Reason: AGITATION/ANXIETY/INSOMNIA Multivitamins (Theragran Tab*) 1 tab PO DAILY [facility] Last Admin: 07/30/16 09:23 Dose: Not Given Oseltamivir Phosphate (Tamiflu Cap*) 30 mg PO DAILY [facility] Risperidone (Risperdal*) 2 mg PO BEDTIME [facility] Last Admin: 07/29/16 21:37 Dose: Not Given - Discharge Plan Discharge Plan: Inpatient Hospitalization
[2016-07-30] MEDS: Oseltamivir CAP* 75 MG PO SCH (17:02)
[2016-07-30] MEDS: risperiDONE TAB* 2 MG PO SCH (20:23)
[2016-07-31] MEDS: Vitamin THERAPEUTIC TAB PO SCH (09:17)
[2016-07-31] MEDS: Oseltamivir CAP* 75 MG PO SCH (09:17)
--- NOTE | 2016-07-31 12:11 | PN ---
Subjective - Subjective Service Type: 54917 Hosp care 15 min low complexity Subjective: The patient is still oddly related with diffuse cognitions and inability to account for how he might take care of himself if discharged. "Oh, I don't know. Go here, go there, you know." He is receiving Tamiflu for prophylaxis, following exposure to influenza on the unit from an infected peer, but he is refusing antipsychotic therapy of any kind. He is seclusive to himself and does not come out of his room typically unless for meals. Objective - Appearance Appearance: Well Developed/Nourished, Thin Framed Dysmorphic Features: No Hygiene: Normal Grooming: Well Kept - Behavior Psychomotor Activities: Abnormal-Decreased Exhibits Abnormal Movement: No - Attitude and Relatedness Attitude and Relatedness: Withdrawn Eye Contact: Poor - Speech Quality: Unpressured Latencies: Normal Quantity: Terse - Mood Patient's Decription of Mood: "Okay" - Affect Observed Affect: Unvariable Affect Consistent with: Euthymia - Thought Process Patient's Thought Process: Disorganized Thought Content: Yes Paranoid Ideation, No Passive Wish, No Suicidal Planning, No Homicidal Ideation - Sensorium Experiencing Hallucinations: Yes Type of Hallucinations: Visual: No, Auditory: Yes, Command: No - Level of Consciousness Level of Consciousness: Alert Orientation: Yes Intact, Yes Orientated to Time, Yes Orientated to Place, Yes Orientated to Person - Impulse Control Impulse Control: Poor - Insight and Judgement Insight and Judgement: Impaired - Group Participation Particating in Group Activities: No - Medication Management Medication Management Adherence: No Assessment - Assessment Merits Inpatient Hospitalization: For Immediate Safety, For Stabilization Inpatient DSM-IV Dx: Unspecified psychotic DO Clinical Impression: 25 y.o. single, homosexual, homeless AA male with a history of psychotic illness and past psychiatric hospitalization arrived at the hospital voluntarily , complaining of groin pain and difficulty urinating, but presents with disorganized thought process and inability to care for himself in the community. Plan - Plan Treatment Plan: Name: DONOVAN MORILLO Birthdate: 1990 [id number] The patient is refusing treatment and remains psychotic, uncooperative and disorganized. Will encourage adherence with risperidone. Will pursue T.O.O. as patient is disorganized and incapable of participating in safe discharge planning. Continued Medication Management: Start Medication Medications: Current Medications Acetaminophen (Tylenol Tab*) 650 mg PO Q4H PRN PRN Reason: for pain; or Temp >101 F Al Hydrox/Mg Hydrox/Simethicone (Maalox Plus*) 30 ml PO Q4H PRN PRN Reason: INDIGESTION Last Admin: 07/27/16 09:45 Dose: 30 ml Chlorpromazine HCl (Thorazine Tab*) 100 mg PO Q6H PRN PRN Reason: AGITATION/ANXIETY/INSOMNIA Multivitamins (Theragran Tab*) 1 tab PO DAILY [facility] Last Admin: 07/31/16 09:17 Dose: 1 tab Oseltamivir Phosphate (Tamiflu Cap*) 75 mg PO DAILY [facility] Last Admin: 07/31/16 09:17 Dose: 75 mg Risperidone (Risperdal*) 2 mg PO BEDTIME [facility] Last Admin: 07/30/16 20:23 Dose: Not Given - Discharge Plan Discharge Plan: Inpatient Hospitalization
[2016-07-31] MEDS: risperiDONE TAB* 2 MG PO SCH (21:47)
[2016-08-01] MEDS: Oseltamivir CAP* 75 MG PO SCH (09:53)
[2016-08-01] MEDS: Vitamin THERAPEUTIC TAB PO SCH (09:53)
--- NOTE | 2016-08-01 14:02 | PN ---
Subjective - Subjective Service Type: 36909 Hosp care 15 min low complexity Subjective: The patient has no complaints today. When asked about discharge plans he continues to respond vaguely. "Oh, I don't know just call the [facility]." He cannot give any specific contact options there and replies only "Just look at the website. Someone's email is bound to be on there." He is isolating to his room and will not attend groups nor interact with peers. His room is dishevelled and cluttered. Objective - Appearance Appearance: Thin Framed Dysmorphic Features: No Hygiene: Dirty Grooming: Disheveled - Behavior Psychomotor Activities: Normal Exhibits Abnormal Movement: No - Attitude and Relatedness Attitude and Relatedness: Psychotically Related Eye Contact: Poor - Speech Quality: Unpressured Latencies: Normal Quantity: Terse - Mood Patient's Decription of Mood: "Fine" - Affect Observed Affect: Unvariable Affect Consistent with: Euthymia - Thought Process Patient's Thought Process: Loose Associations Thought Content: Yes Paranoid Ideation, No Passive Wish, No Suicidal Planning, No Homicidal Ideation - Sensorium Experiencing Hallucinations: Yes Type of Hallucinations: Visual: No, Auditory: Yes, Command: No - Level of Consciousness Level of Consciousness: Alert Orientation: Yes Intact, Yes Orientated to Time, Yes Orientated to Place, Yes Orientated to Person - Impulse Control Impulse Control: Poor - Insight and Judgement Insight and Judgement: Impaired - Group Participation Particating in Group Activities: No - Medication Management Medication Management Adherence: No Assessment - Assessment Merits Inpatient Hospitalization: For Immediate Safety, For Stabilization Inpatient DSM-IV Dx: Unspecified psychotic DO Clinical Impression: 25 y.o. single, homosexual, homeless AA male with a history of psychotic illness and past psychiatric hospitalization arrived at the hospital voluntarily , complaining of groin pain and difficulty urinating, but presents with disorganized thought process and inability to care for himself in the community. Plan - Plan Treatment Plan: Name: DONOVAN MORILLO Birthdate: 1990 [id number] The patient is refusing treatment and remains psychotic, uncooperative and disorganized. Will encourage adherence with risperidone. Will pursue T.O.O. as patient is disorganized and incapable of participating in safe discharge planning. Continued Medication Management: Start Medication Medications: Current Medications Acetaminophen (Tylenol Tab*) 650 mg PO Q4H PRN PRN Reason: for pain; or Temp >101 F Al Hydrox/Mg Hydrox/Simethicone (Maalox Plus*) 30 ml PO Q4H PRN PRN Reason: INDIGESTION Last Admin: 07/27/16 09:45 Dose: 30 ml Chlorpromazine HCl (Thorazine Tab*) 100 mg PO Q6H PRN PRN Reason: AGITATION/ANXIETY/INSOMNIA Multivitamins (Theragran Tab*) 1 tab PO DAILY [facility] Last Admin: 08/01/16 09:53 Dose: 1 tab Oseltamivir Phosphate (Tamiflu Cap*) 75 mg PO DAILY [facility] Last Admin: 08/01/16 09:53 Dose: 75 mg Risperidone (Risperdal*) 2 mg PO BEDTIME [facility] Last Admin: 07/31/16 21:47 Dose: Not Given - Discharge Plan Discharge Plan: Inpatient Hospitalization
[2016-08-01] MEDS: risperiDONE TAB* 2 MG PO SCH (20:19)
[2016-08-02] MEDS: Oseltamivir CAP* 75 MG PO SCH (09:33)
[2016-08-02] MEDS: Vitamin THERAPEUTIC TAB PO SCH (09:33)
[2016-08-02] MEDS: risperiDONE TAB* 2 MG PO SCH (20:26)
[2016-08-03] MEDS: Oseltamivir CAP* 75 MG PO SCH (09:58)
[2016-08-03] MEDS: Vitamin THERAPEUTIC TAB PO SCH (09:58)
[2016-08-03] MEDS: risperiDONE TAB* 2 MG PO SCH (20:19)
[2016-08-04] MEDS: Oseltamivir CAP* 75 MG PO SCH ×2 (10:08→10:30)
[2016-08-04] MEDS: Vitamin THERAPEUTIC TAB PO SCH ×2 (10:08→10:35)
--- NOTE | 2016-08-04 16:09 | PN ---
Subjective - Subjective Service Type: 85093 Hosp care 15 min low complexity Subjective: The patient still displays gross thought disorganization. He hands me two scraps of paper which have various phone numbers, email addresses and people's names that I do not recognize. "You had asked me to help with the discharge planning. All the information you need is right there." Later the papers are given to the SW, Dia Sterling who indicates that they include a website for [employer], emails for [facility] billing and patient care departments and a generic address for the [employer] [facility]. He is calm and cooperative but not leaving his room other than to eat. He continues to refuse psychiatric medications. Objective - Appearance Appearance: Thin Framed Dysmorphic Features: No Hygiene: Normal Grooming: Disheveled - Behavior Psychomotor Activities: Normal Exhibits Abnormal Movement: No - Attitude and Relatedness Attitude and Relatedness: Psychotically Related Eye Contact: Poor - Speech Quality: Unpressured Latencies: Normal Quantity: Terse - Mood Patient's Decription of Mood: "Fine" - Affect Observed Affect: Unvariable Affect Consistent with: Euthymia - Thought Process Patient's Thought Process: Disorganized, Impoverished Thought Content: Yes Paranoid Ideation, No Passive Wish, No Suicidal Planning, No Homicidal Ideation - Sensorium Experiencing Hallucinations: Yes Type of Hallucinations: Visual: No, Auditory: Yes, Command: No - Level of Consciousness Level of Consciousness: Alert Orientation: Yes Intact, Yes Orientated to Time, Yes Orientated to Place, Yes Orientated to Person - Impulse Control Impulse Control: Poor - Insight and Judgement Insight and Judgement: Impaired - Group Participation Particating in Group Activities: No - Medication Management Medication Management Adherence: No Assessment - Assessment Merits Inpatient Hospitalization: For Immediate Safety, For Stabilization, For Discharge Planning Inpatient DSM-IV Dx: Unspecified psychotic DO Clinical Impression: 25 y.o. single, homosexual, homeless AA male with a history of psychotic illness and past psychiatric hospitalization arrived at the hospital voluntarily , complaining of groin pain and difficulty urinating, but presents with disorganized thought process and inability to care for himself in the community. Plan - Plan Treatment Plan: Name: DONOVAN MORILLO Birthdate: 1990 [id number] The patient is refusing treatment and remains psychotic, uncooperative and disorganized. Will encourage adherence with risperidone. Will pursue T.O.O. as patient is disorganized and incapable of participating in safe discharge planning. Continued Medication Management: Start Medication Medications: Current Medications Acetaminophen (Tylenol Tab*) 650 mg PO Q4H PRN PRN Reason: for pain; or Temp >101 F Al Hydrox/Mg Hydrox/Simethicone (Maalox Plus*) 30 ml PO Q4H PRN PRN Reason: INDIGESTION Last Admin: 07/27/16 09:45 Dose: 30 ml Chlorpromazine HCl (Thorazine Tab*) 100 mg PO Q6H PRN PRN Reason: AGITATION/ANXIETY/INSOMNIA Multivitamins (Theragran Tab*) 1 tab PO DAILY [facility] Last Admin: 08/04/16 10:35 Dose: Not Given Oseltamivir Phosphate (Tamiflu Cap*) 75 mg PO DAILY [facility] Last Admin: 08/04/16 10:30 Dose: Not Given Risperidone (Risperdal*) 2 mg PO BEDTIME [facility] Last Admin: 08/03/16 20:19 Dose: Not Given - Discharge Plan Discharge Plan: Inpatient Hospitalization
[2016-08-04] MEDS: risperiDONE TAB* 2 MG PO SCH (21:35)
[2016-08-05] MEDS: Vitamin THERAPEUTIC TAB PO SCH (10:58)
[2016-08-05] MEDS: Oseltamivir CAP* 75 MG PO SCH (10:58)
--- NOTE | 2016-08-05 11:51 | PN ---
Subjective - Subjective Service Type: [id number] Hosp care 15 min low complexity Subjective: The patient is again engaged on the subject of discharge planning and where he could safely go after discharge. He is notified that the contact sources he provided me with yesterday were incoherent, such as the [employer], [employer] and several unrelated administrative departments here at this hospital. "OK, well, I guess I got one or two digits wrong in the addresses I gave you. I'll look into it." He misses most meals and does not often leave his room, which appears messy and cluttered. Objective - Appearance Appearance: Thin Framed Dysmorphic Features: No Hygiene: Normal Grooming: Disheveled - Behavior Psychomotor Activities: Abnormal-Decreased Exhibits Abnormal Movement: No - Attitude and Relatedness Attitude and Relatedness: Psychotically Related Eye Contact: Poor - Speech Quality: Unpressured Latencies: Normal Quantity: Terse - Mood Patient's Decription of Mood: "Okay" - Affect Observed Affect: Unvariable Affect Consistent with: Euthymia - Thought Process Patient's Thought Process: Disorganized, Impoverished Thought Content: Yes Paranoid Ideation, No Passive Wish, No Suicidal Planning, No Homicidal Ideation - Sensorium Experiencing Hallucinations: Yes Type of Hallucinations: Visual: No, Auditory: Yes, Command: No - Level of Consciousness Level of Consciousness: Alert Orientation: Yes Intact, Yes Orientated to Time, Yes Orientated to Place, Yes Orientated to Person - Impulse Control Impulse Control: Poor - Insight and Judgement Insight and Judgement: Impaired - Group Participation Particating in Group Activities: No - Medication Management Medication Management Adherence: No Assessment - Assessment Merits Inpatient Hospitalization: For Immediate Safety, For Stabilization Inpatient DSM-IV Dx: Unspecified psychotic DO Clinical Impression: 25 y.o. single, homosexual, homeless AA male with a history of psychotic illness and past psychiatric hospitalization arrived at the hospital voluntarily , complaining of groin pain and difficulty urinating, but presents with disorganized thought process and inability to care for himself in the community. Plan - Plan Treatment Plan: Name: DONOVAN MORILLO Birthdate: 1990 [id number] The patient is refusing treatment and remains psychotic, uncooperative and disorganized. Will encourage adherence with risperidone. Will pursue T.O.O. as patient is disorganized and incapable of participating in safe discharge planning. Continued Medication Management: Start Medication Medications: Current Medications Acetaminophen (Tylenol Tab*) 650 mg PO Q4H PRN PRN Reason: for pain; or Temp >101 F Al Hydrox/Mg Hydrox/Simethicone (Maalox Plus*) 30 ml PO Q4H PRN PRN Reason: INDIGESTION Last Admin: 07/27/16 09:45 Dose: 30 ml Chlorpromazine HCl (Thorazine Tab*) 100 mg PO Q6H PRN PRN Reason: AGITATION/ANXIETY/INSOMNIA Multivitamins (Theragran Tab*) 1 tab PO DAILY [facility] Last Admin: 08/05/16 10:58 Dose: Not Given Oseltamivir Phosphate (Tamiflu Cap*) 75 mg PO DAILY [facility] Last Admin: 08/05/16 10:58 Dose: Not Given Risperidone (Risperdal*) 2 mg PO BEDTIME [facility] Last Admin: 08/04/16 21:35 Dose: Not Given - Discharge Plan Discharge Plan: Inpatient Hospitalization
[2016-08-05] MEDS ORDERED: diPHENhydraMINE PO* 50 MG ONE (17:35)
[2016-08-05] MEDS ORDERED: diPHENhydraMINE PO* 50 MG PO ONE (17:40)
[2016-08-05] MEDS ORDERED: chlorproMAZINE INJ* 25 MG/ML 2 ML (50 MG) IM ONE (18:00)
[2016-08-05] MEDS ORDERED: chlorproMAZINE INJ* 25 MG/ML 2 ML (50 MG) ONE (18:07)
[2016-08-05] MEDS: risperiDONE TAB* 2 MG PO SCH (20:19)
[2016-08-06] MEDS: Oseltamivir CAP* 75 MG PO SCH (14:53)
[2016-08-06] MEDS: Vitamin THERAPEUTIC TAB PO SCH (14:53)
--- NOTE | 2016-08-06 15:08 | PN ---
Subjective - Subjective Service Type: [id number] Hosp care 15 min low complexity Subjective: The patient was apparently agitated and attempting to elope last night. 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 He again refused oral meds and received a 100mg dose of IM chlorpromazine instead. Currently he is complaining of "allergies" from the shot but cannot describe what type of reaction he's experiencing. He hands me another scrap of paper, peeled out of a magazine, with an address for [facility], presumably in support of being discharged there. I point out that the address is for the lobby of a [employer] there, to which he replies "Oh, OK. I guess we'll have to have the social services analyst sort it out." Objective - Appearance Appearance: Thin Framed Dysmorphic Features: No Hygiene: Normal Grooming: Fairly Well Kept - Behavior Psychomotor Activities: Normal Exhibits Abnormal Movement: No - Attitude and Relatedness Attitude and Relatedness: Psychotically Related Eye Contact: Poor - Speech Quality: Unpressured Latencies: Normal Quantity: Terse - Mood Patient's Decription of Mood: "Fine" - Affect Observed Affect: Unvariable Affect Consistent with: Euthymia - Thought Process Patient's Thought Process: Disorganized Thought Content: Yes Paranoid Ideation, No Passive Wish, No Suicidal Planning, No Homicidal Ideation - Sensorium Experiencing Hallucinations: Yes Type of Hallucinations: Visual: No, Auditory: Yes, Command: No - Level of Consciousness Level of Consciousness: Alert Orientation: Yes Intact, Yes Orientated to Time, Yes Orientated to Place, Yes Orientated to Person - Impulse Control Impulse Control: Poor - Insight and Judgement Insight and Judgement: Impaired - Group Participation Particating in Group Activities: No - Medication Management Medication Management Adherence: No Assessment - Assessment Merits Inpatient Hospitalization: For Immediate Safety, For Stabilization Inpatient DSM-IV Dx: Unspecified psychotic DO Clinical Impression: 25 y.o. single, homosexual, homeless AA male with a history of psychotic illness and past psychiatric hospitalization arrived at the hospital voluntarily , complaining of groin pain and difficulty urinating, but presents with disorganized thought process and inability to care for himself in the community. Plan - Plan Treatment Plan: Name: DONOVAN MORILLO Birthdate: 1990 [id number] The patient is refusing treatment and remains psychotic, uncooperative and disorganized. Will encourage adherence with risperidone. Will pursue T.O.O. as patient is disorganized and incapable of participating in safe discharge planning. Court date set for Thursday, 08/08 at 09:30. Continued Medication Management: Start Medication Medications: Current Medications Acetaminophen (Tylenol Tab*) 650 mg PO Q4H PRN PRN Reason: for pain; or Temp >101 F Al Hydrox/Mg Hydrox/Simethicone (Maalox Plus*) 30 ml PO Q4H PRN PRN Reason: INDIGESTION Last Admin: 07/27/16 09:45 Dose: 30 ml Chlorpromazine HCl (Thorazine Tab*) 100 mg PO Q6H PRN PRN Reason: AGITATION/ANXIETY/INSOMNIA Multivitamins (Theragran Tab*) 1 tab PO DAILY [facility] Last Admin: 08/06/16 14:53 Dose: Not Given Oseltamivir Phosphate (Tamiflu Cap*) 75 mg PO DAILY [facility] Last Admin: 08/06/16 14:53 Dose: Not Given Risperidone (Risperdal*) 2 mg PO BEDTIME [facility] Last Admin: 08/05/16 20:19 Dose: 2 mg - Discharge Plan Discharge Plan: Inpatient Hospitalization
[2016-08-06] MEDS: risperiDONE TAB* 2 MG PO SCH (20:11)
[2016-08-07] MEDS: Oseltamivir CAP* 75 MG PO SCH (09:53)
[2016-08-07] MEDS: Vitamin THERAPEUTIC TAB PO SCH (09:54)
--- NOTE | 2016-08-07 11:17 | PN ---
Subjective - Subjective Service Type: [id number] Hosp care 15 min low complexity Subjective: The patient remains non-adherent with treatment and spends almost the whole day in bed in his room under the covers. He is delusional and not able to state where or with whom he would reside following discharge. Objective - Appearance Appearance: Thin Framed Dysmorphic Features: No Hygiene: Normal Grooming: Disheveled - Behavior Psychomotor Activities: Abnormal-Decreased Exhibits Abnormal Movement: No - Attitude and Relatedness Attitude and Relatedness: Withdrawn Eye Contact: Poor - Speech Quality: Unpressured Latencies: Normal Quantity: Terse - Mood Patient's Decription of Mood: "Okay" - Affect Observed Affect: Unvariable Affect Consistent with: Euthymia - Thought Process Patient's Thought Process: Impoverished Thought Content: Yes Paranoid Ideation, No Passive Wish, No Suicidal Planning, No Homicidal Ideation - Sensorium Experiencing Hallucinations: Yes Type of Hallucinations: Visual: No, Auditory: Yes, Command: No - Level of Consciousness Level of Consciousness: Alert Orientation: Yes Intact, Yes Orientated to Time, Yes Orientated to Place, Yes Orientated to Person - Impulse Control Impulse Control: Poor - Insight and Judgement Insight and Judgement: Impaired - Group Participation Particating in Group Activities: No - Medication Management Medication Management Adherence: No Assessment - Assessment Merits Inpatient Hospitalization: For Immediate Safety, For Stabilization Inpatient DSM-IV Dx: Unspecified psychotic DO Clinical Impression: 25 y.o. single, homosexual, homeless AA male with a history of psychotic illness and past psychiatric hospitalization arrived at the hospital voluntarily , complaining of groin pain and difficulty urinating, but presents with disorganized thought process and inability to care for himself in the community. Plan - Plan Treatment Plan: Name: DONOVAN MORILLO Birthdate: 1990 [id number] The patient is refusing treatment and remains psychotic, uncooperative and disorganized. Will encourage adherence with risperidone. Will pursue T.O.O. as patient is disorganized and incapable of participating in safe discharge planning. Court date set for 08/08 at 09:30. Continued Medication Management: Start Medication Medications: Current Medications Acetaminophen (Tylenol Tab*) 650 mg PO Q4H PRN PRN Reason: for pain; or Temp >101 F Al Hydrox/Mg Hydrox/Simethicone (Maalox Plus*) 30 ml PO Q4H PRN PRN Reason: INDIGESTION Last Admin: 07/27/16 09:45 Dose: 30 ml Chlorpromazine HCl (Thorazine Tab*) 100 mg PO Q6H PRN PRN Reason: AGITATION/ANXIETY/INSOMNIA Multivitamins (Theragran Tab*) 1 tab PO DAILY [facility] Last Admin: 08/07/16 09:54 Dose: Not Given Oseltamivir Phosphate (Tamiflu Cap*) 75 mg PO DAILY [facility] Last Admin: 08/07/16 09:53 Dose: Not Given Risperidone (Risperdal*) 2 mg PO BEDTIME [facility] Last Admin: 08/06/16 20:11 Dose: Not Given - Discharge Plan Discharge Plan: Inpatient Hospitalization
[2016-08-07] MEDS: risperiDONE TAB* 2 MG PO SCH (20:45)
[2016-08-08] MEDS ORDERED: Ibuprofen TAB* 600 MG PO PRN (08:52)
--- NOTE | 2016-08-08 08:56 | PN ---
Subjective - Subjective Service Type: 62572 Hosp care 15 min low complexity Subjective: Patient curled up on his bed and refusing to come with the Collection Systems Technician to his court proceeding this morning. "No, I don't think so. 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 He continues to refuse antipsychotic medications and shows no insight into his condition. Objective - Appearance Appearance: Thin Framed Dysmorphic Features: No Hygiene: Normal Grooming: Fairly Well Kept - Behavior Psychomotor Activities: Normal Exhibits Abnormal Movement: No - Attitude and Relatedness Attitude and Relatedness: Psychotically Related Eye Contact: Poor - Speech Quality: Unpressured Latencies: Normal Quantity: Terse - Mood Patient's Decription of Mood: "Okay" - Affect Observed Affect: Unvariable Affect Consistent with: Euthymia - Thought Process Patient's Thought Process: Impoverished Thought Content: Yes Paranoid Ideation, No Passive Wish, No Suicidal Planning, No Homicidal Ideation - Sensorium Experiencing Hallucinations: Yes Type of Hallucinations: Visual: No, Auditory: Yes, Command: No - Level of Consciousness Level of Consciousness: Alert Orientation: Yes Intact, Yes Orientated to Time, Yes Orientated to Place, Yes Orientated to Person - Impulse Control Impulse Control: Poor - Insight and Judgement Insight and Judgement: Impaired - Group Participation Particating in Group Activities: No - Medication Management Medication Management Adherence: No Assessment - Assessment Inpatient DSM-IV Dx: Unspecified psychotic DO Clinical Impression: 25 y.o. single, homosexual, homeless AA male with a history of psychotic illness and past psychiatric hospitalization arrived at the hospital voluntarily , complaining of groin pain and difficulty urinating, but presents with disorganized thought process and inability to care for himself in the community. Plan - Plan Treatment Plan: Name: DONOVAN MORILLO Birthdate: 1990 [id number] The patient is refusing treatment and remains psychotic, uncooperative and disorganized. Will encourage adherence with risperidone. Will pursue T.O.O. as patient is disorganized and incapable of participating in safe discharge planning. Court date set for today, Thursday, 08/08 at 09:30. Continued Medication Management: Start Medication Medications: Current Medications Acetaminophen (Tylenol Tab*) 650 mg PO Q4H PRN PRN Reason: for pain; or Temp >101 F Al Hydrox/Mg Hydrox/Simethicone (Maalox Plus*) 30 ml PO Q4H PRN PRN Reason: INDIGESTION Last Admin: 07/27/16 09:45 Dose: 30 ml Chlorpromazine HCl (Thorazine Tab*) 100 mg PO Q6H PRN PRN Reason: AGITATION/ANXIETY/INSOMNIA Multivitamins (Theragran Tab*) 1 tab PO DAILY [facility] Last Admin: 08/07/16 09:54 Dose: Not Given Oseltamivir Phosphate (Tamiflu Cap*) 75 mg PO DAILY [facility] Last Admin: 08/07/16 09:53 Dose: Not Given Risperidone (Risperdal*) 2 mg PO BEDTIME [facility] Last Admin: 08/07/16 20:45 Dose: Not Given - Discharge Plan Discharge Plan: Inpatient Hospitalization
[2016-08-08] MEDS: Oseltamivir CAP* 75 MG PO SCH (10:31)
[2016-08-08] MEDS: Vitamin THERAPEUTIC TAB PO SCH (10:31)
[2016-08-08] MEDS: risperiDONE TAB* 2 MG PO SCH (20:00)
[2016-08-09] MEDS: Vitamin THERAPEUTIC TAB PO SCH (09:49)
[2016-08-09] MEDS: Oseltamivir CAP* 75 MG PO SCH (09:49)
[2016-08-09] MEDS ORDERED: diPHENhydraMINE PO* 50 MG PO PRN (19:02)
[2016-08-09] MEDS: risperiDONE TAB* 2 MG PO SCH (21:13)
[2016-08-10] MEDS: Oseltamivir CAP* 75 MG PO SCH (10:07)
[2016-08-10] MEDS: Vitamin THERAPEUTIC TAB PO SCH (10:07)
[2016-08-10] MEDS: risperiDONE TAB* 2 MG PO SCH (20:42)
[2016-08-11] MEDS: Oseltamivir CAP* 75 MG PO SCH (09:08)
[2016-08-11] MEDS: Vitamin THERAPEUTIC TAB PO SCH (09:08)
--- NOTE | 2016-08-11 13:18 | PN ---
Subjective - Subjective Service Type: [id number] Hosp care 15 min low complexity Subjective: The patient appears to be tolerating his initial loading dose of Invega Sustenna , which he received without incident on Thursday, 08/08. He continues to be dismissive about treatment and continues to state that his intention is to return to the [facility] after discharge, a place his mother insists he's never been to, much less went to school at. Objective - Appearance Appearance: Thin Framed Dysmorphic Features: No Hygiene: Normal Grooming: Well Kept - Behavior Psychomotor Activities: Normal Exhibits Abnormal Movement: No - Attitude and Relatedness Attitude and Relatedness: Psychotically Related Eye Contact: Fair - Speech Quality: Unpressured Latencies: Normal Quantity: Terse - Mood Patient's Decription of Mood: "Fine" - Affect Observed Affect: Unvariable Affect Consistent with: Euthymia - Thought Process Patient's Thought Process: Impoverished Thought Content: Yes Paranoid Ideation, No Passive Wish, No Suicidal Planning, No Homicidal Ideation - Sensorium Experiencing Hallucinations: Yes Type of Hallucinations: Visual: No, Auditory: Yes, Command: No - Level of Consciousness Level of Consciousness: Alert Orientation: Yes Intact, Yes Orientated to Time, Yes Orientated to Place, Yes Orientated to Person - Impulse Control Impulse Control: Poor - Insight and Judgement Insight and Judgement: Impaired - Group Participation Particating in Group Activities: No - Medication Management Medication Management Adherence: Yes Assessment - Assessment Merits Inpatient Hospitalization: For Immediate Safety, For Stabilization Inpatient DSM-IV Dx: Unspecified psychotic DO Clinical Impression: 25 y.o. single, homosexual, homeless AA male with a history of psychotic illness and past psychiatric hospitalization arrived at the hospital voluntarily , complaining of groin pain and difficulty urinating, but presents with disorganized thought process and inability to care for himself in the community. Plan - Plan Treatment Plan: Name: DONOVAN MORILLO Birthdate: 1990 [id number] The patient is now receiving Invega Sustenna therapy in keeping with the court' s order for treatment over his objection. He remains disorganized and incapable of participating in safe discharge planning. Booster dose of Invega Sustenna scheduled for Thursday, 08/13. Continued Medication Management: Start Medication Medications: Current Medications Acetaminophen (Tylenol Tab*) 650 mg PO Q4H PRN PRN Reason: for pain; or Temp >101 F Al Hydrox/Mg Hydrox/Simethicone (Maalox Plus*) 30 ml PO Q4H PRN PRN Reason: INDIGESTION Last Admin: 07/27/16 09:45 Dose: 30 ml Chlorpromazine HCl (Thorazine Tab*) 100 mg PO Q6H PRN PRN Reason: AGITATION/ANXIETY/INSOMNIA Diphenhydramine HCl (Benadryl Po*) 50 mg PO Q6H PRN PRN Reason: DISCOMFORT Last Admin: 08/09/16 21:13 Dose: 50 mg Ibuprofen (Motrin Tab*) 600 mg PO Q6H PRN PRN Reason: PAIN Last Admin: 08/08/16 10:33 Dose: 600 mg Multivitamins (Theragran Tab*) 1 tab PO DAILY [facility] Last Admin: 08/11/16 09:08 Dose: Not Given - Discharge Plan Discharge Plan: Inpatient Hospitalization
[2016-08-11] MEDS ORDERED: Paliperidone SUSTENNA* 234 MG/1.5 ML IM ONE (14:00)
[2016-08-12] MEDS: Vitamin THERAPEUTIC TAB PO SCH (09:10)
[2016-08-12] MEDS ORDERED: chlorproMAZINE INJ* 25 MG/ML 2 ML (50 MG) ONE (15:38)
[2016-08-13] MEDS: Vitamin THERAPEUTIC TAB PO SCH (09:26)
--- NOTE | 2016-08-13 11:16 | PN ---
Subjective - Subjective Service Type: [id number] Hosp care 15 min low complexity Subjective: Jairo received stat IM chlorpromazine last night for wandering into peers' rooms. He is unapologetic and uninsightful at this point, stating "I just think it's a nice thing to visit people and find out more about them." He appears to be tolerating the loading dose of Invega Sustenna and is due tomorrow for a booster injection of this. He has been emailing [facility] employees in other departments, asking questions about what kind of cars they drive. Objective - Appearance Appearance: Thin Framed Dysmorphic Features: No Hygiene: Normal Grooming: Fairly Well Kept - Behavior Psychomotor Activities: Normal Exhibits Abnormal Movement: No - Attitude and Relatedness Attitude and Relatedness: Psychotically Related Eye Contact: Poor - Speech Quality: Unpressured Latencies: Normal Quantity: Terse - Mood Patient's Decription of Mood: "Fine" - Affect Observed Affect: Unvariable Affect Consistent with: Euthymia - Thought Process Patient's Thought Process: Disorganized, Impoverished Thought Content: Yes Paranoid Ideation, No Passive Wish, No Suicidal Planning, No Homicidal Ideation - Sensorium Experiencing Hallucinations: Yes Type of Hallucinations: Visual: No, Auditory: Yes, Command: No - Level of Consciousness Level of Consciousness: Alert Orientation: Yes Intact, Yes Orientated to Time, Yes Orientated to Place, Yes Orientated to Person - Impulse Control Impulse Control: Poor - Insight and Judgement Insight and Judgement: Impaired - Group Participation Particating in Group Activities: No - Medication Management Medication Management Adherence: Yes Assessment - Assessment Merits Inpatient Hospitalization: For Immediate Safety, For Stabilization Inpatient DSM-IV Dx: Unspecified psychotic DO Clinical Impression: 25 y.o. single, homosexual, homeless AA male with a history of psychotic illness and past psychiatric hospitalization arrived at the hospital voluntarily , complaining of groin pain and difficulty urinating, but presents with disorganized thought process and inability to care for himself in the community. Plan - Plan Treatment Plan: Name: JAIRO MORILLO Birthdate: 1990 [id number] The patient is now receiving Invega Sustenna therapy in keeping with the court' s order for treatment over his objection. He remains disorganized and incapable of participating in safe discharge planning. Booster dose of Invega Sustenna scheduled for tomorrow. Will d/c computer privileges. Continued Medication Management: Start Medication Medications: Current Medications Acetaminophen (Tylenol Tab*) 650 mg PO Q4H PRN PRN Reason: for pain; or Temp >101 F Al Hydrox/Mg Hydrox/Simethicone (Maalox Plus*) 30 ml PO Q4H PRN PRN Reason: INDIGESTION Last Admin: 07/27/16 09:45 Dose: 30 ml Chlorpromazine HCl (Thorazine Tab*) 100 mg PO Q6H PRN PRN Reason: AGITATION/ANXIETY/INSOMNIA Diphenhydramine HCl (Benadryl Po*) 50 mg PO Q6H PRN PRN Reason: DISCOMFORT Last Admin: 08/09/16 21:13 Dose: 50 mg Ibuprofen (Motrin Tab*) 600 mg PO Q6H PRN PRN Reason: PAIN Last Admin: 08/08/16 10:33 Dose: 600 mg Multivitamins (Theragran Tab*) 1 tab PO DAILY [facility] Last Admin: 08/13/16 09:26 Dose: 1 tab - Discharge Plan Discharge Plan: Inpatient Hospitalization
[2016-08-13] MEDS ORDERED: Paliperidone SUSTENNA* 234 MG/1.5 ML IM ONE (11:17)
[2016-08-13] MEDS ORDERED: Paliperidone SUSTENNA* 156 MG/1 ML IM ONE (15:00)
--- NOTE | 2016-08-14 11:58 | PN ---
Subjective - Subjective Service Type: [id number] Hosp care 15 min low complexity Subjective: The patient continues to be bizarre and intrusive on the unit, although no further prn medications have been administered. He awaits his booster dose of Invega Sustenna, which is due today. Objective - Appearance Appearance: Well Developed/Nourished, Thin Framed Dysmorphic Features: No Hygiene: Normal Grooming: Disheveled - Behavior Psychomotor Activities: Normal Exhibits Abnormal Movement: No - Attitude and Relatedness Attitude and Relatedness: Psychotically Related Eye Contact: Poor - Speech Quality: Unpressured Latencies: Normal Quantity: Terse - Mood Patient's Decription of Mood: "Okay" - Affect Observed Affect: Unvariable Affect Consistent with: Euthymia - Thought Process Patient's Thought Process: Impoverished Thought Content: Yes Paranoid Ideation, No Passive Wish, No Suicidal Planning, No Homicidal Ideation - Sensorium Experiencing Hallucinations: Yes Type of Hallucinations: Visual: No, Auditory: Yes, Command: No - Level of Consciousness Level of Consciousness: Alert Orientation: Yes Intact, Yes Orientated to Time, Yes Orientated to Place, Yes Orientated to Person - Impulse Control Impulse Control: Poor - Insight and Judgement Insight and Judgement: Impaired - Group Participation Particating in Group Activities: No - Medication Management Medication Management Adherence: Yes Assessment - Assessment Merits Inpatient Hospitalization: For Immediate Safety, For Stabilization Inpatient DSM-IV Dx: Unspecified psychotic DO Clinical Impression: 25 y.o. single, homosexual, homeless AA male with a history of psychotic illness and past psychiatric hospitalization arrived at the hospital voluntarily , complaining of groin pain and difficulty urinating, but presents with disorganized thought process and inability to care for himself in the community. Plan - Plan Treatment Plan: Name: DONOVAN MORILLO Birthdate: 1990 [id number] The patient is now receiving Invega Sustenna therapy in keeping with the court' s order for treatment over his objection. He remains disorganized and incapable of participating in safe discharge planning. Booster dose of Invega Sustenna scheduled for today. Continued Medication Management: Start Medication Medications: Current Medications Acetaminophen (Tylenol Tab*) 650 mg PO Q4H PRN PRN Reason: for pain; or Temp >101 F Al Hydrox/Mg Hydrox/Simethicone (Maalox Plus*) 30 ml PO Q4H PRN PRN Reason: INDIGESTION Last Admin: 07/27/16 09:45 Dose: 30 ml Chlorpromazine HCl (Thorazine Tab*) 100 mg PO Q6H PRN PRN Reason: AGITATION/ANXIETY/INSOMNIA Diphenhydramine HCl (Benadryl Po*) 50 mg PO Q6H PRN PRN Reason: DISCOMFORT Last Admin: 08/09/16 21:13 Dose: 50 mg Ibuprofen (Motrin Tab*) 600 mg PO Q6H PRN PRN Reason: PAIN Last Admin: 08/08/16 10:33 Dose: 600 mg Multivitamins (Theragran Tab*) 1 tab PO DAILY [facility] Last Admin: 08/13/16 09:26 Dose: 1 tab - Discharge Plan Discharge Plan: Inpatient Hospitalization
[2016-08-14] MEDS ORDERED: Paliperidone SUSTENNA* 156 MG/1 ML IM ONE (13:00)
[2016-08-15] MEDS: Vitamin THERAPEUTIC TAB PO SCH (09:55)
[2016-08-15] MEDS ORDERED: Haloperidol INJ IV/IM* 5 MG/ML AMP IM PRN (15:46)
--- NOTE | 2016-08-15 15:51 | PN ---
Subjective - Subjective Service Type: [id number] Hosp care 15 min low complexity Subjective: Patient remains bizarre and unable to participate in d/c planning. 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 [employer] Objective - Appearance Appearance: Thin Framed Dysmorphic Features: No Hygiene: Normal Grooming: Fairly Well Kept - Behavior Psychomotor Activities: Abnormal-Decreased Exhibits Abnormal Movement: No - Attitude and Relatedness Attitude and Relatedness: Withdrawn Eye Contact: Poor - Speech Quality: Unpressured Latencies: Normal Quantity: Terse - Mood Patient's Decription of Mood: "Anxious" - Affect Observed Affect: Unvariable Affect Consistent with: Euthymia - Thought Process Patient's Thought Process: Impoverished Thought Content: Yes Paranoid Ideation, No Passive Wish, No Suicidal Planning, No Homicidal Ideation - Sensorium Experiencing Hallucinations: Yes Type of Hallucinations: Visual: No, Auditory: Yes, Command: No - Level of Consciousness Level of Consciousness: Alert Orientation: Yes Intact, Yes Orientated to Time, Yes Orientated to Place, Yes Orientated to Person - Impulse Control Impulse Control: Poor - Insight and Judgement Insight and Judgement: Impaired - Group Participation Particating in Group Activities: No - Medication Management Medication Management Adherence: Yes Assessment - Assessment Merits Inpatient Hospitalization: For Immediate Safety, For Stabilization Inpatient DSM-IV Dx: Unspecified psychotic DO Clinical Impression: 25 y.o. single, homosexual, homeless AA male with a history of psychotic illness and past psychiatric hospitalization arrived at the hospital voluntarily , complaining of groin pain and difficulty urinating, but presents with disorganized thought process and inability to care for himself in the community. Plan - Plan Treatment Plan: Name: DONOVAN MORILLO Birthdate: 1990 [id number] The patient is now receiving Invega Sustenna therapy in keeping with the court' s order for treatment over his objection. We will add a night-time dose or oral paliperidone at 3mg PO qhs and see if this improves his mentation. Continued Medication Management: Start Medication Medications: Current Medications Acetaminophen (Tylenol Tab*) 650 mg PO Q4H PRN PRN Reason: for pain; or Temp >101 F Al Hydrox/Mg Hydrox/Simethicone (Maalox Plus*) 30 ml PO Q4H PRN PRN Reason: INDIGESTION Last Admin: 07/27/16 09:45 Dose: 30 ml Chlorpromazine HCl (Thorazine Tab*) 100 mg PO Q6H PRN PRN Reason: AGITATION/ANXIETY/INSOMNIA Diphenhydramine HCl (Benadryl Po*) 50 mg PO Q6H PRN PRN Reason: DISCOMFORT Last Admin: 08/09/16 21:13 Dose: 50 mg Haloperidol Lactate (Haldol Inj Iv/Im*) 5 mg IM BEDTIME PRN PRN Reason: PSYCHOSIS Ibuprofen (Motrin Tab*) 600 mg PO Q6H PRN PRN Reason: PAIN Last Admin: 08/08/16 10:33 Dose: 600 mg Multivitamins (Theragran Tab*) 1 tab PO DAILY [facility] Last Admin: 08/15/16 09:55 Dose: Not Given Paliperidone (Invega Tab*) 3 mg PO BEDTIME [facility] - Discharge Plan Discharge Plan: Inpatient Hospitalization
[2016-08-15] MEDS: Paliperidone TAB* 3 MG TAB PO SCH (21:34)
[2016-08-16] MEDS: Vitamin THERAPEUTIC TAB PO SCH ×2 (08:39→11:06)
[2016-08-16] MEDS: Paliperidone TAB* 3 MG TAB PO SCH (20:21)
[2016-08-17] MEDS: Vitamin THERAPEUTIC TAB PO SCH (10:01)
--- NOTE | 2016-08-17 19:45 | PN ---
Progress Note - Progress Note Note: Patient told there are two patients on the unit (did not disclose their names) who have tested positive for Influenza A and I am recommending taking Tamiflu as a prophylactic measure. I made it clear this was optional. He agreed to the treatment after hearing of the indications, risks, benefits and alternatives.
[2016-08-17] MEDS: Paliperidone TAB* 3 MG TAB PO SCH (21:20)
[2016-08-18] MEDS: Oseltamivir CAP* 75 MG PO SCH (10:01)
[2016-08-18] MEDS: Vitamin THERAPEUTIC TAB PO SCH (10:02)
--- NOTE | 2016-08-18 12:50 | PN ---
Subjective - Subjective Service Type: [id number] Hosp care 15 min low complexity Subjective: The patient remains bizarre and delusional despite therapeutic doses of paliperidone, both oral and injectable. He continues to be unable to participate in reality-based discharge planning. "Yeah, I have to get out within the next few days. I have some very important clients that are waiting for me and my [employer] business [employer] Objective - Appearance Appearance: Thin Framed Dysmorphic Features: No Hygiene: Normal Grooming: Fairly Well Kept - Behavior Psychomotor Activities: Abnormal-Decreased Exhibits Abnormal Movement: No - Attitude and Relatedness Attitude and Relatedness: Withdrawn Eye Contact: Poor - Speech Quality: Unpressured Latencies: Normal Quantity: Terse - Mood Patient's Decription of Mood: "Fine" - Affect Observed Affect: Unvariable Affect Consistent with: Euthymia - Thought Process Patient's Thought Process: Impoverished Thought Content: Yes Paranoid Ideation, No Passive Wish, No Suicidal Planning, No Homicidal Ideation - Sensorium Experiencing Hallucinations: Yes Type of Hallucinations: Visual: No, Auditory: Yes, Command: No - Level of Consciousness Level of Consciousness: Alert Orientation: Yes Intact, Yes Orientated to Time, Yes Orientated to Place, Yes Orientated to Person - Impulse Control Impulse Control: Poor - Insight and Judgement Insight and Judgement: Impaired - Group Participation Particating in Group Activities: No - Medication Management Medication Management Adherence: Yes Assessment - Assessment Merits Inpatient Hospitalization: For Immediate Safety, For Stabilization Inpatient DSM-IV Dx: Unspecified psychotic DO Clinical Impression: 25 y.o. single, homosexual, homeless AA male with a history of psychotic illness and past psychiatric hospitalization arrived at the hospital voluntarily , complaining of groin pain and difficulty urinating, but presents with disorganized thought process and inability to care for himself in the community. Plan - Plan Treatment Plan: Name: DONOVAN PONCE Birthdate: 1990 [id number] The patient is now receiving oral and IM Invega therapy in keeping with the court's order for treatment over his objection. Unfortunately, he has not shown much improvement at all and he would not be able take care of himself if discharged to a senior living or a similar placement. Will pursue longer term hospitalization in a State facility. Continued Medication Management: Start Medication Medications: Current Medications Acetaminophen (Tylenol Tab*) 650 mg PO Q4H PRN PRN Reason: for pain; or Temp >101 F Al Hydrox/Mg Hydrox/Simethicone (Maalox Plus*) 30 ml PO Q4H PRN PRN Reason: INDIGESTION Last Admin: 07/27/16 09:45 Dose: 30 ml Chlorpromazine HCl (Thorazine Tab*) 100 mg PO Q6H PRN PRN Reason: AGITATION/ANXIETY/INSOMNIA Diphenhydramine HCl (Benadryl Po*) 50 mg PO Q6H PRN PRN Reason: DISCOMFORT Last Admin: 08/09/16 21:13 Dose: 50 mg Haloperidol Lactate (Haldol Inj Iv/Im*) 5 mg IM BEDTIME PRN PRN Reason: PSYCHOSIS Ibuprofen (Motrin Tab*) 600 mg PO Q6H PRN PRN Reason: PAIN Last Admin: 08/08/16 10:33 Dose: 600 mg Multivitamins (Theragran Tab*) 1 tab PO DAILY [facility] Last Admin: 08/18/16 10:02 Dose: Not Given Oseltamivir Phosphate (Tamiflu Cap*) 75 mg PO DAILY [facility] Stop: 08/27/16 09:01 Last Admin: 08/18/16 10:01 Dose: 75 mg Paliperidone (Invega Tab*) 3 mg PO BEDTIME [facility] Last Admin: 08/17/16 21:20 Dose: 3 mg - Discharge Plan Discharge Plan: Consider Longer Term Tx
[2016-08-18] MEDS: Paliperidone TAB* 3 MG TAB PO SCH (20:22)
[2016-08-19] MEDS: Oseltamivir CAP* 75 MG PO SCH (11:24)
[2016-08-19] MEDS: Vitamin THERAPEUTIC TAB PO SCH (11:24)
--- NOTE | 2016-08-19 12:31 | PN ---
Subjective - Subjective Service Type: [id number] Hosp care 15 min low complexity Subjective: Jairo remains delusional, dishevelled and isolative to his room. He remains incapable of providing for his own basic needs if discharged. He awaits State hospitalization, to which he appears ambivalent. Objective - Appearance Appearance: Thin Framed Hygiene: Normal Grooming: Disheveled - Behavior Psychomotor Activities: Abnormal-Decreased Exhibits Abnormal Movement: No - Attitude and Relatedness Attitude and Relatedness: Withdrawn Eye Contact: Poor - Speech Quality: Unpressured Latencies: Normal Quantity: Terse - Mood Patient's Decription of Mood: "Fine" - Affect Observed Affect: Unvariable Affect Consistent with: Euthymia - Thought Process Patient's Thought Process: Impoverished Thought Content: Yes Paranoid Ideation, No Passive Wish, No Suicidal Planning, No Homicidal Ideation - Sensorium Experiencing Hallucinations: Yes Type of Hallucinations: Visual: No, Auditory: Yes, Command: No - Level of Consciousness Level of Consciousness: Alert Orientation: Yes Intact, Yes Orientated to Time, Yes Orientated to Place, Yes Orientated to Person - Impulse Control Impulse Control: Poor - Insight and Judgement Insight and Judgement: Impaired - Group Participation Particating in Group Activities: No - Medication Management Medication Management Adherence: Yes Assessment - Assessment Merits Inpatient Hospitalization: For Immediate Safety, For Stabilization Inpatient DSM-IV Dx: Unspecified psychotic DO Clinical Impression: 25 y.o. single, homosexual, homeless AA male with a history of psychotic illness and past psychiatric hospitalization arrived at the hospital voluntarily , complaining of groin pain and difficulty urinating, but presents with disorganized thought process and inability to care for himself in the community. Plan - Plan Treatment Plan: Name: JAIRO MORILLO Birthdate: 1990 [id number] The patient is now receiving oral and IM Invega therapy in keeping with the court's order for treatment over his objection. Unfortunately, he has not shown much improvement at all and he would not be able take care of himself if discharged to a retirement or a similar placement. Will pursue longer term hospitalization in a State facility. Continued Medication Management: Start Medication Medications: Current Medications Acetaminophen (Tylenol Tab*) 650 mg PO Q4H PRN PRN Reason: for pain; or Temp >101 F Al Hydrox/Mg Hydrox/Simethicone (Maalox Plus*) 30 ml PO Q4H PRN PRN Reason: INDIGESTION Last Admin: 07/27/16 09:45 Dose: 30 ml Chlorpromazine HCl (Thorazine Tab*) 100 mg PO Q6H PRN PRN Reason: AGITATION/ANXIETY/INSOMNIA Diphenhydramine HCl (Benadryl Po*) 50 mg PO Q6H PRN PRN Reason: DISCOMFORT Last Admin: 08/09/16 21:13 Dose: 50 mg Haloperidol Lactate (Haldol Inj Iv/Im*) 5 mg IM BEDTIME PRN PRN Reason: PSYCHOSIS Ibuprofen (Motrin Tab*) 600 mg PO Q6H PRN PRN Reason: PAIN Last Admin: 08/08/16 10:33 Dose: 600 mg Multivitamins (Theragran Tab*) 1 tab PO DAILY [facility] Last Admin: 08/19/16 11:24 Dose: Not Given Oseltamivir Phosphate (Tamiflu Cap*) 75 mg PO DAILY [facility] Stop: 08/27/16 09:01 Last Admin: 08/19/16 11:24 Dose: 75 mg Paliperidone (Invega Tab*) 3 mg PO BEDTIME [facility] Last Admin: 08/18/16 20:22 Dose: 3 mg - Discharge Plan Discharge Plan: Consider Longer Term Tx
[2016-08-19] MEDS: Paliperidone TAB* 3 MG TAB PO SCH (21:05)
[2016-08-20] MEDS: Oseltamivir CAP* 75 MG PO SCH (09:39)
[2016-08-20] MEDS: Vitamin THERAPEUTIC TAB PO SCH (09:39)
--- NOTE | 2016-08-20 14:59 | PN ---
Subjective - Subjective Service Type: [id number] Hosp care 15 min low complexity Subjective: The patient remains bizarre and isolative. He appears unable to give a coherent discharge plan. Objective - Appearance Appearance: Thin Framed Dysmorphic Features: No Hygiene: Normal Grooming: Fairly Well Kept - Behavior Psychomotor Activities: Normal Exhibits Abnormal Movement: No - Attitude and Relatedness Attitude and Relatedness: Psychotically Related Eye Contact: Poor - Speech Quality: Unpressured Latencies: Normal Quantity: Terse - Mood Patient's Decription of Mood: "Fine" - Affect Observed Affect: Unvariable Affect Consistent with: Euthymia - Thought Process Patient's Thought Process: Impoverished Thought Content: Yes Paranoid Ideation, No Passive Wish, No Suicidal Planning, No Homicidal Ideation - Sensorium Experiencing Hallucinations: Yes Type of Hallucinations: Visual: No, Auditory: Yes, Command: No - Level of Consciousness Level of Consciousness: Alert Orientation: Yes Intact, Yes Orientated to Time, Yes Orientated to Place, Yes Orientated to Person - Impulse Control Impulse Control: Poor - Insight and Judgement Insight and Judgement: Impaired - Group Participation Particating in Group Activities: No - Medication Management Medication Management Adherence: Yes Assessment - Assessment Merits Inpatient Hospitalization: For Immediate Safety, For Stabilization Inpatient DSM-IV Dx: Unspecified psychotic DO Clinical Impression: 25 y.o. single, homosexual, homeless AA male with a history of psychotic illness and past psychiatric hospitalization arrived at the hospital voluntarily , complaining of groin pain and difficulty urinating, but presents with disorganized thought process and inability to care for himself in the community. Plan - Plan Treatment Plan: Name: DONOVAN MORILLO Birthdate: 1990 [id number] The patient is now receiving oral and IM Invega therapy in keeping with the court's order for treatment over his objection. Unfortunately, he has not shown much improvement at all and he would not be able take care of himself if discharged to a [facility] or a similar placement. Will pursue longer term hospitalization in a State facility. Continued Medication Management: Start Medication Medications: Current Medications Acetaminophen (Tylenol Tab*) 650 mg PO Q4H PRN PRN Reason: for pain; or Temp >101 F Al Hydrox/Mg Hydrox/Simethicone (Maalox Plus*) 30 ml PO Q4H PRN PRN Reason: INDIGESTION Last Admin: 07/27/16 09:45 Dose: 30 ml Chlorpromazine HCl (Thorazine Tab*) 100 mg PO Q6H PRN PRN Reason: AGITATION/ANXIETY/INSOMNIA Diphenhydramine HCl (Benadryl Po*) 50 mg PO Q6H PRN PRN Reason: DISCOMFORT Last Admin: 08/09/16 21:13 Dose: 50 mg Haloperidol Lactate (Haldol Inj Iv/Im*) 5 mg IM BEDTIME PRN PRN Reason: PSYCHOSIS Ibuprofen (Motrin Tab*) 600 mg PO Q6H PRN PRN Reason: PAIN Last Admin: 08/08/16 10:33 Dose: 600 mg Multivitamins (Theragran Tab*) [address] [facility] Last Admin: 08/20/16 09:39 Dose: Not Given Oseltamivir Phosphate (Tamiflu Cap*) 75 mg PO DAILY [facility] Stop: 08/27/16 09:01 Last Admin: 08/20/16 09:39 Dose: Not Given Paliperidone (Invega Tab*) [address] [facility] Last Admin: 08/19/16 21:05 Dose: 3 mg - Discharge Plan Discharge Plan: Consider Longer Term Tx
[2016-08-20] MEDS: Paliperidone TAB* 3 MG TAB PO SCH (21:52)
[2016-08-21] MEDS: Vitamin THERAPEUTIC TAB PO SCH (09:22)
[2016-08-21] MEDS: Oseltamivir CAP* 75 MG PO SCH (09:22)
[2016-08-21] MEDS: Paliperidone TAB* 3 MG TAB PO SCH (21:28)
[2016-08-22] MEDS: Vitamin THERAPEUTIC TAB PO SCH (09:36)
[2016-08-22] MEDS: Oseltamivir CAP* 75 MG PO SCH (09:36)
--- NOTE | 2016-08-22 13:16 | PN ---
Subjective - Subjective Service Type: [id number] Hosp care 15 min low complexity Subjective: The patient is under the covers on his bed and refuses to come out, although he answers questions in a tank riveter, quirky, nonchalant voice. "Oh, you know, I'm fine. Summer's coming. It's nice here." He is not joining groups or milieu activities and tends to isolate in bed all day. Objective - Appearance Appearance: Thin Framed Dysmorphic Features: No Hygiene: Normal Grooming: Fairly Well Kept - Behavior Psychomotor Activities: Abnormal-Decreased Exhibits Abnormal Movement: No - Attitude and Relatedness Attitude and Relatedness: Psychotically Related Eye Contact: Poor - Speech Quality: Unpressured Latencies: Normal Quantity: Terse - Mood Patient's Decription of Mood: "Fine" - Affect Observed Affect: Unvariable Affect Consistent with: Euthymia - Thought Process Patient's Thought Process: Impoverished Thought Content: Yes Paranoid Ideation, No Passive Wish, No Suicidal Planning, No Homicidal Ideation - Sensorium Experiencing Hallucinations: Yes Type of Hallucinations: Visual: No, Auditory: Yes, Command: No - Level of Consciousness Level of Consciousness: Alert Orientation: Yes Intact, Yes Orientated to Time, Yes Orientated to Place, Yes Orientated to Person - Impulse Control Impulse Control: Poor - Insight and Judgement Insight and Judgement: Impaired - Group Participation Particating in Group Activities: No - Medication Management Medication Management Adherence: Yes Assessment - Assessment Merits Inpatient Hospitalization: For Immediate Safety, For Stabilization Inpatient DSM-IV Dx: Unspecified psychotic DO Clinical Impression: 25 y.o. single, homosexual, homeless AA male with a history of psychotic illness and past psychiatric hospitalization arrived at the hospital voluntarily , complaining of groin pain and difficulty urinating, but presents with disorganized thought process and inability to care for himself in the community. Plan - Plan Treatment Plan: Name: DONOVAN MORILLO Birthdate: 1990 [id number] The patient is now receiving oral and IM Invega therapy in keeping with the court's order for treatment over his objection. Unfortunately, he has not shown much improvement at all and he would not be able take care of himself if discharged to a assisted or a similar placement. Will pursue longer term hospitalization in a State facility. Continued Medication Management: Start Medication Medications: Current Medications Acetaminophen (Tylenol Tab*) 650 mg PO Q4H PRN PRN Reason: for pain; or Temp >101 F Al Hydrox/Mg Hydrox/Simethicone (Maalox Plus*) 30 ml PO Q4H PRN PRN Reason: INDIGESTION Last Admin: 07/27/16 09:45 Dose: 30 ml Chlorpromazine HCl (Thorazine Tab*) 100 mg PO Q6H PRN PRN Reason: AGITATION/ANXIETY/INSOMNIA Diphenhydramine HCl (Benadryl Po*) 50 mg PO Q6H PRN PRN Reason: DISCOMFORT Last Admin: 08/09/16 21:13 Dose: 50 mg Haloperidol Lactate (Haldol Inj Iv/Im*) 5 mg IM BEDTIME PRN PRN Reason: PSYCHOSIS Ibuprofen (Motrin Tab*) 600 mg PO Q6H PRN PRN Reason: PAIN Last Admin: 08/08/16 10:33 Dose: 600 mg Multivitamins (Theragran Tab*) 1 tab PO DAILY [facility] Last Admin: 08/22/16 09:36 Dose: Not Given Oseltamivir Phosphate (Tamiflu Cap*) 75 mg PO DAILY [facility] Stop: 08/27/16 09:01 Last Admin: 08/22/16 09:36 Dose: Not Given Paliperidone (Invega Tab*) 3 mg PO BEDTIME [facility] Last Admin: 08/21/16 21:28 Dose: 3 mg - Discharge Plan Discharge Plan: Consider Longer Term Tx
[2016-08-22] MEDS: Paliperidone TAB* 3 MG TAB PO SCH (20:29)
[2016-08-23] MEDS: Vitamin THERAPEUTIC TAB PO SCH (08:22)
[2016-08-23] MEDS: Oseltamivir CAP* 75 MG PO SCH (08:47)
[2016-08-23] MEDS: Paliperidone TAB* 3 MG TAB PO SCH (21:40)
[2016-08-24] MEDS: Vitamin THERAPEUTIC TAB PO SCH (11:22)
[2016-08-24] MEDS: Paliperidone TAB* 3 MG TAB PO SCH (22:18)
[2016-08-25] MEDS: Vitamin THERAPEUTIC TAB PO SCH (09:09)
--- NOTE | 2016-08-25 15:15 | PN ---
Subjective - Subjective Service Type: [id number] Hosp care 15 min low complexity Subjective: The patient is found, yet again, wrapped like a cocoon in a blanket on top of his bed. He is still isolating to his room, even during meals and does not attend groups. He remains delusional that he is a nurse. Objective - Appearance Appearance: Thin Framed Dysmorphic Features: No Hygiene: Normal Grooming: Fairly Well Kept - Behavior Psychomotor Activities: Abnormal-Decreased Exhibits Abnormal Movement: No - Attitude and Relatedness Attitude and Relatedness: Psychotically Related Eye Contact: Poor - Speech Quality: Unpressured Latencies: Normal Quantity: Terse - Mood Patient's Decription of Mood: "Fine" - Affect Observed Affect: Unvariable Affect Consistent with: Euthymia - Thought Process Patient's Thought Process: Impoverished Thought Content: Yes Paranoid Ideation, No Passive Wish, No Suicidal Planning, No Homicidal Ideation - Sensorium Experiencing Hallucinations: Yes Type of Hallucinations: Visual: No, Auditory: Yes, Command: No - Level of Consciousness Level of Consciousness: Alert Orientation: Yes Intact, Yes Orientated to Time, Yes Orientated to Place, Yes Orientated to Person - Impulse Control Impulse Control: Poor - Insight and Judgement Insight and Judgement: Impaired - Group Participation Particating in Group Activities: No - Medication Management Medication Management Adherence: Yes Assessment - Assessment Merits Inpatient Hospitalization: For Immediate Safety, For Stabilization Inpatient DSM-IV Dx: Unspecified psychotic DO Clinical Impression: 25 y.o. single, homosexual, homeless AA male with a history of psychotic illness and past psychiatric hospitalization arrived at the hospital voluntarily , complaining of groin pain and difficulty urinating, but presents with disorganized thought process and inability to care for himself in the community. Plan - Plan Treatment Plan: Name: DONOVAN MORILLO Birthdate: 1990 [id number] The patient is now receiving oral and IM Invega therapy in keeping with the court's order for treatment over his objection. Unfortunately, he has not shown much improvement at all and he would not be able take care of himself if discharged to a senior care or a similar placement. We will increase his nightly oral paliperidone dose from 3 to 6mg PO qhs. Will pursue longer term hospitalization in a State facility. Continued Medication Management: Start Medication Medications: Current Medications Acetaminophen (Tylenol Tab*) 650 mg PO Q4H PRN PRN Reason: for pain; or Temp >101 F Al Hydrox/Mg Hydrox/Simethicone (Maalox Plus*) 30 ml PO Q4H PRN PRN Reason: INDIGESTION Last Admin: 07/27/16 09:45 Dose: 30 ml Chlorpromazine HCl (Thorazine Tab*) 100 mg PO Q6H PRN PRN Reason: AGITATION/ANXIETY/INSOMNIA Diphenhydramine HCl (Benadryl Po*) 50 mg PO Q6H PRN PRN Reason: DISCOMFORT Last Admin: 08/09/16 21:13 Dose: 50 mg Haloperidol Lactate (Haldol Inj Iv/Im*) 5 mg IM BEDTIME PRN PRN Reason: PSYCHOSIS Ibuprofen (Motrin Tab*) 600 mg PO Q6H PRN PRN Reason: PAIN Last Admin: 08/08/16 10:33 Dose: 600 mg Multivitamins (Theragran Tab*) 1 tab PO DAILY [facility] Last Admin: 08/25/16 09:09 Dose: Not Given Paliperidone (Invega Tab*) 3 mg PO BEDTIME [facility] Last Admin: 08/24/16 22:18 Dose: 3 mg - Discharge Plan Discharge Plan: Consider Longer Term Tx
[2016-08-25] MEDS: Paliperidone TAB* 6 MG PO SCH (20:21)
[2016-08-26] MEDS: Vitamin THERAPEUTIC TAB PO SCH (10:42)
[2016-08-26] MEDS: Paliperidone TAB* 6 MG PO SCH (20:52)
[2016-08-27] MEDS: Vitamin THERAPEUTIC TAB PO SCH (09:23)
--- NOTE | 2016-08-27 14:02 | PN ---
Subjective - Subjective Service Type: [id number] Hosp care 15 min low complexity Subjective: The patient remains psychotic and non-participatory. He explains that he is religiously opposed to some of the content of the groups and therefore not willing to attend them. Objective - Appearance Appearance: Thin Framed Dysmorphic Features: No Hygiene: Normal Grooming: Fairly Well Kept - Behavior Psychomotor Activities: Normal Exhibits Abnormal Movement: No - Attitude and Relatedness Attitude and Relatedness: Psychotically Related Eye Contact: Poor - Speech Quality: Unpressured Latencies: Normal Quantity: Terse - Mood Patient's Decription of Mood: "Great" - Affect Observed Affect: Unvariable Affect Consistent with: Euthymia - Thought Process Patient's Thought Process: Impoverished Thought Content: Yes Paranoid Ideation, No Passive Wish, No Suicidal Planning, No Homicidal Ideation - Sensorium Experiencing Hallucinations: Yes Type of Hallucinations: Visual: No, Auditory: Yes, Command: No - Level of Consciousness Level of Consciousness: Alert Orientation: Yes Intact, Yes Orientated to Time, Yes Orientated to Place, Yes Orientated to Person - Impulse Control Impulse Control: Poor - Insight and Judgement Insight and Judgement: Impaired - Group Participation Particating in Group Activities: No - Medication Management Medication Management Adherence: Yes Assessment - Assessment Merits Inpatient Hospitalization: For Immediate Safety, For Stabilization Inpatient DSM-IV Dx: Unspecified psychotic DO Clinical Impression: 25 y.o. single, homosexual, homeless AA male with a history of psychotic illness and past psychiatric hospitalization arrived at the hospital voluntarily , complaining of groin pain and difficulty urinating, but presents with disorganized thought process and inability to care for himself in the community. Plan - Plan Treatment Plan: Name: DONOVAN MORILLO Birthdate: 1990 [id number] The patient is now receiving oral and IM Invega therapy in keeping with the court's order for treatment over his objection. Unfortunately, he has not shown much improvement at all and he would not be able take care of himself if discharged to a intermediate or a similar placement. We will increase his nightly oral paliperidone dose from 3 to 6mg PO qhs. Will pursue longer term hospitalization in a State facility. Continued Medication Management: Start Medication Medications: Current Medications Acetaminophen (Tylenol Tab*) 650 mg PO Q4H PRN PRN Reason: for pain; or Temp >101 F Al Hydrox/Mg Hydrox/Simethicone (Maalox Plus*) 30 ml PO Q4H PRN PRN Reason: INDIGESTION Last Admin: 07/27/16 09:45 Dose: 30 ml Chlorpromazine HCl (Thorazine Tab*) 100 mg PO Q6H PRN PRN Reason: AGITATION/ANXIETY/INSOMNIA Diphenhydramine HCl (Benadryl Po*) 50 mg PO Q6H PRN PRN Reason: DISCOMFORT Last Admin: 08/09/16 21:13 Dose: 50 mg Haloperidol Lactate (Haldol Inj Iv/Im*) 5 mg IM BEDTIME PRN PRN Reason: PSYCHOSIS Ibuprofen (Motrin Tab*) 600 mg PO Q6H PRN PRN Reason: PAIN Last Admin: 08/08/16 10:33 Dose: 600 mg Multivitamins (Theragran Tab*) 1 tab PO DAILY [facility] Last Admin: 08/27/16 09:23 Dose: Not Given Paliperidone (Invega Tab*) 6 mg PO BEDTIME [facility] Last Admin: 08/26/16 20:52 Dose: 6 mg - Discharge Plan Discharge Plan: Consider Longer Term Tx
[2016-08-27] MEDS: Paliperidone TAB* 6 MG PO SCH (20:37)
[2016-08-28] MEDS: Vitamin THERAPEUTIC TAB PO SCH (08:27)
--- NOTE | 2016-08-28 11:06 | PN ---
Subjective - Subjective Service Type: [id number] Hosp care 15 min low complexity Subjective: The patient remains seclusive to his room, not participating in unit activities. "Oh, I wanted to tell you that I'm fine with the idea of [place]. I told you yesterday that I wanted to go to [place] but I've decided that [place] is fine." He is delusional with no insight on exam. Objective - Appearance Appearance: Thin Framed Dysmorphic Features: No Hygiene: Normal Grooming: Fairly Well Kept - Behavior Psychomotor Activities: Normal Exhibits Abnormal Movement: No - Attitude and Relatedness Attitude and Relatedness: Psychotically Related Eye Contact: Poor - Speech Quality: Unpressured Latencies: Normal Quantity: Terse - Mood Patient's Decription of Mood: "Great" - Affect Observed Affect: Unvariable Affect Consistent with: Euthymia - Thought Process Patient's Thought Process: Impoverished Thought Content: Yes Paranoid Ideation, No Passive Wish, No Suicidal Planning, No Homicidal Ideation - Sensorium Experiencing Hallucinations: Yes Type of Hallucinations: Visual: No, Auditory: Yes, Command: No - Level of Consciousness Level of Consciousness: Alert Orientation: Yes Intact, Yes Orientated to Time, Yes Orientated to Place, Yes Orientated to Person - Impulse Control Impulse Control: Poor - Insight and Judgement Insight and Judgement: Impaired - Group Participation Particating in Group Activities: No - Medication Management Medication Management Adherence: Yes Assessment - Assessment Merits Inpatient Hospitalization: For Immediate Safety, For Stabilization Inpatient DSM-IV Dx: Unspecified psychotic DO Clinical Impression: 25 y.o. single, homosexual, homeless AA male with a history of psychotic illness and past psychiatric hospitalization arrived at the hospital voluntarily , complaining of groin pain and difficulty urinating, but presents with disorganized thought process and inability to care for himself in the community. Plan - Plan Treatment Plan: Name: DONOVAN MORILLO Birthdate: 1990 [id number] The patient is now receiving oral and IM Invega therapy in keeping with the court's order for treatment over his objection. Unfortunately, he has not shown much improvement at all and he would not be able take care of himself if discharged to a senior living or a similar placement. His nightly oral paliperidone dose is 6mg PO qhs. Will pursue longer term hospitalization in a State facility. Continued Medication Management: Start Medication Medications: Current Medications Acetaminophen (Tylenol Tab*) 650 mg PO Q4H PRN PRN Reason: for pain; or Temp >101 F Al Hydrox/Mg Hydrox/Simethicone (Maalox Plus*) 30 ml PO Q4H PRN PRN Reason: INDIGESTION Last Admin: 07/27/16 09:45 Dose: 30 ml Chlorpromazine HCl (Thorazine Tab*) 100 mg PO Q6H PRN PRN Reason: AGITATION/ANXIETY/INSOMNIA Diphenhydramine HCl (Benadryl Po*) 50 mg PO Q6H PRN PRN Reason: DISCOMFORT Last Admin: 08/09/16 21:13 Dose: 50 mg Haloperidol Lactate (Haldol Inj Iv/Im*) 5 mg IM BEDTIME PRN PRN Reason: PSYCHOSIS Ibuprofen (Motrin Tab*) 600 mg PO Q6H PRN PRN Reason: PAIN Last Admin: 08/08/16 10:33 Dose: 600 mg Multivitamins (Theragran Tab*) 1 tab PO DAILY [facility] Last Admin: 08/28/16 08:27 Dose: Not Given Paliperidone (Invega Tab*) 6 mg PO BEDTIME [facility] Last Admin: 08/27/16 20:37 Dose: 6 mg - Discharge Plan Discharge Plan: Consider Longer Term Tx
[2016-08-28] MEDS: Paliperidone TAB* 6 MG PO SCH (20:21)
[2016-08-29] MEDS: Vitamin THERAPEUTIC TAB PO SCH (09:17)
--- NOTE | 2016-08-29 13:13 | PN ---
Subjective - Subjective Service Type: [id number] Hosp care 15 min low complexity Subjective: Jairo refuses to come out from underneath his blanket to interact with me today. "Oh, I'm fine. Don't worry, I'm just resting my eyes. It's bright in my room." This clinician notes that his room is currently somewhat dimly lit. Objective - Appearance Appearance: Thin Framed Dysmorphic Features: No Hygiene: Normal Grooming: Fairly Well Kept - Behavior Psychomotor Activities: Abnormal-Decreased Exhibits Abnormal Movement: No - Attitude and Relatedness Attitude and Relatedness: Psychotically Related Eye Contact: Poor - Speech Quality: Unpressured Latencies: Normal Quantity: Terse - Mood Patient's Decription of Mood: "Fine" - Affect Observed Affect: Unvariable Affect Consistent with: Euthymia - Thought Process Patient's Thought Process: Impoverished Thought Content: Yes Paranoid Ideation, No Passive Wish, No Suicidal Planning, No Homicidal Ideation - Sensorium Experiencing Hallucinations: Yes Type of Hallucinations: Visual: No, Auditory: Yes, Command: No - Level of Consciousness Level of Consciousness: Alert Orientation: Yes Intact, Yes Orientated to Time, Yes Orientated to Place, Yes Orientated to Person - Impulse Control Impulse Control: Poor - Insight and Judgement Insight and Judgement: Impaired - Group Participation Particating in Group Activities: No - Medication Management Medication Management Adherence: Yes Assessment - Assessment Merits Inpatient Hospitalization: For Immediate Safety, For Stabilization Inpatient DSM-IV Dx: Unspecified psychotic DO Clinical Impression: 25 y.o. single, homosexual, homeless AA male with a history of psychotic illness and past psychiatric hospitalization arrived at the hospital voluntarily , complaining of groin pain and difficulty urinating, but presents with disorganized thought process and inability to care for himself in the community. Plan - Plan Treatment Plan: Name: JAIRO MORILLO Birthdate: 1990 [id number] The patient is now receiving oral and IM Invega therapy in keeping with the court's order for treatment over his objection. Unfortunately, he has not shown much improvement at all and he would not be able take care of himself if discharged to a assisted or a similar placement. His nightly oral paliperidone dose is 6mg PO qhs. His next dose of Sustenna will be September 12. Will pursue longer term hospitalization in a State facility. Continued Medication Management: Start Medication Medications: Current Medications Acetaminophen (Tylenol Tab*) 650 mg PO Q4H PRN PRN Reason: for pain; or Temp >101 F Al Hydrox/Mg Hydrox/Simethicone (Maalox Plus*) 30 ml PO Q4H PRN PRN Reason: INDIGESTION Last Admin: 07/27/16 09:45 Dose: 30 ml Chlorpromazine HCl (Thorazine Tab*) 100 mg PO Q6H PRN PRN Reason: AGITATION/ANXIETY/INSOMNIA Diphenhydramine HCl (Benadryl Po*) 50 mg PO Q6H PRN PRN Reason: DISCOMFORT Last Admin: 08/09/16 21:13 Dose: 50 mg Haloperidol Lactate (Haldol Inj Iv/Im*) 5 mg IM BEDTIME PRN PRN Reason: PSYCHOSIS Ibuprofen (Motrin Tab*) 600 mg PO Q6H PRN PRN Reason: PAIN Last Admin: 08/08/16 10:33 Dose: 600 mg Multivitamins (Theragran Tab*) 1 tab PO DAILY [facility] Last Admin: 08/29/16 09:17 Dose: Not Given Paliperidone (Invega Tab*) 6 mg PO BEDTIME [facility] Last Admin: 08/28/16 20:21 Dose: 6 mg Paliperidone Palmitate (Invega Sustenna*) 234 mg IM ONCE ONE Stop: 09/11/16 09:01 - Discharge Plan Discharge Plan: Consider Longer Term Tx
[2016-08-29] MEDS: Paliperidone TAB* 6 MG PO SCH (22:02)
[2016-08-30] MEDS: Vitamin THERAPEUTIC TAB PO SCH (09:49)
[2016-08-30] MEDS: Paliperidone TAB* 6 MG PO SCH (20:41)
[2016-08-31] MEDS: Vitamin THERAPEUTIC TAB PO SCH (09:22)
[2016-08-31] MEDS: Paliperidone TAB* 6 MG PO SCH (20:24)
[2016-09-01] MEDS: Vitamin THERAPEUTIC TAB PO SCH (10:52)
[2016-09-01 16:02] VITALS: BP 101/62
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
[2016-09-11] MEDS ORDERED: Paliperidone SUSTENNA* 234 MG/1.5 ML IM ONE (09:00)
== END 2016-09-01 16:45 | DRG 885 ==
LOC: ED 12:07 → BSU 07-22 16:26
PROVIDERS: ADMIT Psychiatry & Neurology Psychiatry; ATTEND Psychiatry & Neurology Psychiatry
DX: F25.0 Schizoaffective disorder, bipolar type (principal); Z91.14 Patient's other noncompliance with medication regimen; I10 Essential (primary) hypertension; F91.3 Oppositional defiant disorder; F90.9 Attention-deficit hyperactivity disorder, unspecified type; F42.9 Obsessive-compulsive disorder, unspecified; Q53.9 Undescended testicle, unspecified; Z59.0 Homelessness; R00.0 Tachycardia, unspecified; G47.00 Insomnia, unspecified; Z63.9 Problem related to primary support group, unspecified
CPT/HCPCS: 36415; 74176; 76857; 76870; 80053; 83605; 83690; 85025; 86140; 93005; 99222; 99231; 99232; 99238; A9270-GY; J1170; J1885; J2270; J2405; J2426